=== PATIENT | male | born 1930 | race Caucasian/White ===

== ENCOUNTER 2018-01-09 20:35 | Inpatient (IN) | payer MEDICARE, OTHER ==
[~2018-01-09] VITALS: Ht 170.2 cm; Wt 83.6 kg
[2018-01-09] MEDS ORDERED: PANTOPRAZOLE 40 MG 10ML VIAL IV STA (21:15)
[2018-01-09] MEDS ORDERED: SODIUM CHLORIDE 0.9% 1000ML 1,000 ML IV STA ×2 (21:15→23:10)
[2018-01-09 21:24] LABS: BASOPHILS % 0.5 % (0.0-1.0); EOSINOPHILS # (AUTO) 0.3 (0.0-0.4); EOSINOPHILS % 4.3 % (0.0-6.0); HEMATOCRIT 35.1 % (38.2-49.6); HEMOGLOBIN 11.1 g/dL (14.0-18.0); LYMPHOCYTES # (AUTO) 0.6 (1.0-3.2); LYMPHOCYTES % 9.8 % (18.0-39.1); MEAN CORPUSCULAR HEMOGLOBIN 26.1 pg (28-32); MEAN CORPUSCULAR HGB CONC 31.6 g/dL (31-35); MEAN CORPUSCULAR VOLUME 82.4 fL (81-99); MONOCYTES # (AUTO) 0.6 (0.2-0.8); MONOCYTES % 9.4 % (4.4-11.3); NEUTROPHILS # (AUTO) 4.9 (2.1-6.9); NEUTROPHILS % 75.5 % (38.7-80.0); PLATELET COUNT 139 x10e3/uL (140-360); RED BLOOD COUNT 4.26 x10e6/uL (4.3-5.7); RED CELL DISTRIBUTION WIDTH 16.5 % (11.7-14.4)
[2018-01-09 21:28] LABS: INR 2.55; PROTHROMBIN TIME 29.3 seconds (11.9-14.5)
[2018-01-09 21:29] LABS: PARTIAL THROMBOPLASTIN TIME 46.6 seconds (23.8-35.5)
[2018-01-09 21:38] LABS: ALBUMIN 3.6 g/dL (3.5-5.0); ALBUMIN/GLOBULIN RATIO 0.9 (0.8-2.0); ANION GAP 14.7 mmol/L (8-16); CALCIUM 9.5 mg/dL (8.4-10.2); CREATININE, SERUM 1.41 mg/dL (0.72-1.25); MAGNESIUM 1.9 MG/DL (1.3-2.1); POTASSIUM 4.7 mmol/L (3.5-5.1)
[2018-01-09 21:44] LABS: CREATINE KINASE MB 1.2 ng/mL (0-5.0)
--- NOTE | 2018-01-09 23:28 | Diagnostic Imaging Report ---
EXAMINATION: CHEST SINGLE (PORTABLE) INDICATION: Pacemaker, valve replacement, A. fib on Coumadin COMPARISON: None FINDINGS: TUBES and LINES: The pacemaker is intact. LUNGS: Lungs are not well inflated. Left lower lobe airspace opacity in the retrocardiac space with air bronchogram . PLEURA: Trace of left pleural effusion. HEART AND MEDIASTINUM: The cardiomediastinal silhouette is unremarkable. BONES AND SOFT TISSUES: No acute osseous lesion. Soft tissues are unremarkable. UPPER ABDOMEN: No free air under the diaphragm. IMPRESSION: Confluent opacity in the left lower lobe, retrocardiac space may represent atelectasis or pneumonia. Small left pleural effusion. Signed by: Dr. Kristopher Reynoso M.D. on 01/09/2018 11:25 PM
[2018-01-10] VITALS (67 sets, daily range): BP systolic 78–155; BP diastolic 49–87
[2018-01-10] MEDS ORDERED: LISINOPRIL5 MG PO (00:14)
[2018-01-10] MEDS ORDERED: ASPIR 8181 MG PO (00:14)
[2018-01-10] MEDS ORDERED: LIPITOR20 MG PO (00:14)
[2018-01-10] MEDS ORDERED: WARFARIN SODIUM2 MG PO (00:14)
[2018-01-10] MEDS ORDERED: ISOSORBIDE MONO20 MG PO (00:14)
[2018-01-10] MEDS ORDERED: CETIRIZINE HCL10 MG PO (00:14)
[2018-01-10] MEDS ORDERED: BETIMOL5 M1 OS (00:14)
[2018-01-10] MEDS: SODIUM CHLORIDE 0.9% 1000ML 1,000 ML IV SCH ×3 (00:57→23:00)
[2018-01-10 01:41] LABS: BILIRUBIN,URINE NEGATIVE (NEGATIVE); CLARITY,URINE CLEAR (CLEAR); COLOR,URINE YELLOW (YELLOW); KETONES,URINE NEGATIVE (NEGATIVE); LEUKOCYTE ESTERASE ,URINE NEGATIVE (NEGATIVE); NITRITE,URINE NEGATIVE (NEGATIVE); PROTEIN,URINE DIPSTICK NEGATIVE (NEGATIVE); URINE UROBILINOGEN 0.2 mg/dL (0.2 - 1)
[2018-01-10 01:49] LABS: BACTERIA,URINE RARE /HPF; EPITHELIAL CELLS,URINE RARE /LPF; RBC,URINE >50 /HPF (0-5); WBC,URINE (MAN) 0-5 /HPF (0-5)
[2018-01-10 07:58] LABS: BASOPHILS % 0.1 % (0.0-1.0); EOSINOPHILS # (AUTO) 0.3 (0.0-0.4); EOSINOPHILS % 3.8 % (0.0-6.0); HEMATOCRIT 23.6 % (38.2-49.6); HEMOGLOBIN 7.4 g/dL (14.0-18.0); LYMPHOCYTES # (AUTO) 0.7 (1.0-3.2); MEAN CORPUSCULAR HEMOGLOBIN 26.1 pg (28-32); MEAN CORPUSCULAR HGB CONC 31.4 g/dL (31-35); MEAN CORPUSCULAR VOLUME 83.1 fL (81-99); MONOCYTES # (AUTO) 0.6 (0.2-0.8); MONOCYTES % 9.3 % (4.4-11.3); NEUTROPHILS # (AUTO) 5.2 (2.1-6.9); NEUTROPHILS % 76.5 % (38.7-80.0); PLATELET COUNT 124 x10e3/uL (140-360); RED BLOOD COUNT 2.84 x10e6/uL (4.3-5.7); RED CELL DISTRIBUTION WIDTH 16.6 % (11.7-14.4)
[2018-01-10 08:14] LABS: INR 2.63
[2018-01-10 08:27] LABS: ALANINE AMINOTRANSFERASE 10 IU/L (0-55); ALBUMIN 2.7 g/dL (3.5-5.0); ALBUMIN/GLOBULIN RATIO 1.1 (0.8-2.0); ALKALINE PHOSPHATASE 64 IU/L (40-150); ANION GAP 11.8 mmol/L (8-16); BLOOD UREA NITROGEN 28 mg/dL (7-26); BUN/CREATININE RATIO 28 (6-25); CALCIUM 7.8 mg/dL (8.4-10.2); CARBON DIOXIDE 21 mmol/L (22-29); CHLORIDE 112 mmol/L (98-107); CREATININE, SERUM 1.01 mg/dL (0.72-1.25); EST GLOMERULAR FILTRATION RATE > 60 ML/MIN (60-); GLUCOSE 106 mg/dL (74-118); POTASSIUM 4.8 mmol/L (3.5-5.1); SODIUM 140 mmol/L (136-145)
[2018-01-10] MEDS ORDERED: SODIUM CHLORIDE 0.9% 250ML 250 ML IV ONE ×2 (08:45→11:45)
[2018-01-10] MEDS: PANTOPRAZOLE 40 MG 10ML VIAL IV SCH ×2 (09:00→23:00)
--- NOTE | 2018-01-10 09:38 | Consultation ---
DATE OF CONSULTATION: January 10, 2018 GASTROENTEROLOGY CONSULTATION REFERRING PHYSICIAN: Hermelindo Michelle MD REASON FOR CONSULTATION: Hemodynamically unstable lower GI bleeding. HISTORY OF PRESENT ILLNESS: This is an 87-year-old, very pleasant white male with past medical history of coronary artery disease status post CABG, atrial fibrillation on warfarin, aortic stenosis status post bioprosthetic aortic valve replacement, who got up last night with urge to have a bowel movement. When he went to the bathroom, he started passing blood, barely had any stool in it. He reported no abdominal pain. He felt weak and dizzy. He came to the emergency room where his vital signs were noted blood pressure 107/68 that dropped down further to 98/60. He is on warfarin for atrial fibrillation. INR was noted at 2.63. He was subsequently transferred to the medical floor with working diagnosis of lower GI bleeding. He is getting IV fluids. Two units of FFP have been ordered. Hemoglobin was noted to drop down from 14.2, which was his baseline. It dropped down from 11.1 to 7.4. Patient is quite lethargic and drowsy. REVIEW OF SYSTEMS: Twelve point systems reviewed. Symptomatology is limited as per HPI. PAST MEDICAL HISTORY: Hypertension, hyperlipidemia, atrial fibrillation, coronary artery disease, aortic stenosis status post bioprosthetic aortic valve replacement. PAST SURGICAL HISTORY: CABG, aortic valve replacement. FAMILY HISTORY: Noncontributory, given his advanced age. SOCIAL HISTORY: , lives with his . No smoking, alcohol or any illicit drug use. ALLERGIES: NO KNOWN DRUG ALLERGIES. HOME MEDICATIONS: Aspirin, atorvastatin, cetirizine, isosorbide mononitrate, lisinopril, Timolol eye drops, warfarin 4 mg daily. PHYSICAL EXAMINATION VITALS: Temperature 96.7, pulse 62, respirations 17, blood pressure 118/59. Oxygen saturation is 96% on room air. GENERAL: Lethargic. Pale. Drowsy. Oral mucosa is moist. Anicteric sclerae. CVS: S1 and S2 irregularly irregular. Pacemaker in the left anterior chest wall. LUNGS: Bilaterally grossly clear. ABDOMEN: Soft, nondistended, nontender. No palpable mass or hernia. Positive bowel sounds. EXTREMITIES: Cold and clammy. No peripheral edema. LABS: WBC 6.80. Hemoglobin 7.4, dropped down from 11.1. Hematocrit 23.6. Platelet count 124. Sodium 140, potassium 4.8, chloride 112, bicarb 21, BUN 28, creatinine 1.01. Glucose 106. Liver enzymes are normal. Urinalysis showed RBCs more than 50 and WBC 0.5. Chest x-ray: Confluent opacity in the left lower lobe retrocardiac space may represent atelectasis or pneumonia. Small left pleural effusion. IMPRESSION 1. Hemodynamically unstable lower gastrointestinal bleeding, likely diverticular. 2. Coagulopathy from warfarin. International normalization ratio, although, is within therapeutic range. PLAN: Transfer the patient to the ICU. Standard medical management for GI bleeding that should include securing 2 large IV access, IV fluids, monitor hemoglobin, transfuse as necessary to keep the hemoglobin above 7. Oxygen. Reverse coagulopathy to a normalized INR. Therefore, the patient should be given fresh frozen plasma. Stat CT angiogram to check for extravasation of any contrast. If there is any active GI bleeding, then patient should undergo urgent embolization. If no active bleeding, then we will prep him with GoLYTELY and colonoscopy accordingly. I thank Dr. Michelle for allowing me to participate in the care of this patient. Job#: [id number] BRINA
--- NOTE | 2018-01-10 11:58 | Diagnostic Imaging Report ---
PROCEDURE:CTA ABD/PELVIS WOW COMPARISON:None. INDICATIONS:GI BLEED TECHNIQUE: Multi-detector CT technology with Dose Reduction was employed. Images were obtained after the administration of Isovue 370 contrast intravenously. For optimization of anatomic evaluation, multiplanar and volume rendering reconstructions were performed. Advanced 3-D off-line postprocessing were performed on a dedicated stand-alone workstation under the direct supervision of the interpreting physician. DLP: 1740 mGy-cm FINDINGS: Vascular: No evidence of aortic dissection or aneurysm. The suprarenal abdominal aorta measures up to 2.6 cm. The infrarenal abdominal aorta measures up to 2 cm. No evidence of active arterial extravasation or pseudoaneurysm in the mesenteric vessels. Moderate atherosclerotic changes in the abdominal aorta and branch vessels. The bilateral common, external and internal iliac arteries are patent with moderate atherosclerotic disease. No significant areas of narrowing. Separate origin of the left gastric artery from the aorta. Abdominal and Pelvic soft-tissues and organs: Lung bases: Status post aortic valve replacement. Extensive coronary atherosclerotic changes. Partially seen pacemaker lead terminating in the right ventricle. Left atrial enlargement. Patchy dependent atelectasis. Small left pleural effusion. Volume loss in the left lower lobe with bronchiectasis, bronchial wall thickening. Left basilar pleural calcifications. There is a 4 mm solid pulmonary nodule in the left lower lobe on series 4, image 11. Liver: Punctate calcified granulomas in the liver. No other focal hepatic lesions. Calcified gallstones. No biliary ductal dilatation. Reflux of contrast into the IVC, suggestive of right heart dysfunction. Spleen: Splenic granulomas. No splenomegaly. Pancreas: Unremarkable. Adrenal Glands: Unremarkable. Kidneys: Subcentimeter bilateral renal hypo densities are too small to characterize, but likely represent cysts. No evidence of hydronephrosis, stones, or solid mass lesions. No evidence of urothelial images on delayed images. GI: Large hiatal hernia. Peritoneum/Retroperitoneum: No free air or free fluid. Pelvis: Enlarged prostate. Bladder appears unremarkable. Bones and Soft tissues: Diffuse osteopenia. Grade 2 anterolisthesis of L5 on S1 with bone on bone contact and possible partial fusion at this level. There are wedge compression deformities at L1 and L3 with loss of 50-75 percent of vertebral body height. Mild narrowing of the spinal canal at L1. Bilateral fat containing inguinal hernias. CONCLUSION: No evidence of acute vascular findings in the abdomen or pelvis. No etiology identified to account for the patient's reported GI bleed. Age indeterminate wedge compression fractures at L1 and L3 with loss of 50-75 percent of vertebra body height. Sequela of prior granulomatous disease in the left lung base, liver, and spleen. Dictated by: SRINIVAS BLAND M.D. on 01/10/2018 at 12:06 Electronically approved by: SRINIVAS BLAND M.D. on 01/10/2018 at 12:06
[2018-01-10] MEDS: NITROGLYCERIN 0.1MG/HR PATCH TOP SCH (12:00)
[2018-01-10 12:13] LABS: BASOPHILS % 0.3 % (0.0-1.0); EOSINOPHILS # (AUTO) 0.2 (0.0-0.4); EOSINOPHILS % 2.5 % (0.0-6.0); HEMATOCRIT 21.6 % (38.2-49.6); LYMPHOCYTES # (AUTO) 0.7 (1.0-3.2); LYMPHOCYTES % 8.6 % (18.0-39.1); MEAN CORPUSCULAR HEMOGLOBIN 25.9 pg (28-32); MEAN CORPUSCULAR VOLUME 83.4 fL (81-99); MONOCYTES # (AUTO) 0.7 (0.2-0.8); MONOCYTES % 8.3 % (4.4-11.3); NEUTROPHILS # (AUTO) 6.3 (2.1-6.9); NEUTROPHILS % 79.8 % (38.7-80.0); PLATELET COUNT 114 x10e3/uL (140-360); RED BLOOD COUNT 2.59 x10e6/uL (4.3-5.7); RED CELL DISTRIBUTION WIDTH 16.5 % (11.7-14.4)
[2018-01-10 12:21] LABS: HEMOGLOBIN 6.7 g/dL (14.0-18.0)
--- NOTE | 2018-01-10 13:07 | History and Physical ---
CLINICAL HISTORY: This is an 87-year-old white man, a patient Dr. Asha Ortiz, who follows at [facility] and with his business systems consultant at [facility], Dr. Guaman, who presented to the emergency room with rectal bleeding. This patient has a complicated cardiovascular history. He has history of chronic atrial fibrillation, previously suffered 2 strokes without significant sequela. He was taking Coumadin. Last year, he underwent bypass surgery and aortic valve replacement, after which he was continued on Coumadin without any significant bleeding. He is status post pacemaker implantation. Reportedly after his bypass surgery, he developed endocarditis or some other chronic infection that required 8 weeks of intravenous antibiotic on outpatient basis with Dr. Suazo. Recently, he has mild memory issues and has started to walk with a walker for fear of falling. He was at a restaurant when he noticed bright red blood per rectum around dinner time, came to the emergency room and was hospitalized. PAST MEDICAL HISTORY: Remarkable for prostate cancer and bleeding. He was seen recently at the [facility] by urology and was told to not worry about the bleeding. FAMILY HISTORY: Noncontributory. PERSONAL AND SOCIAL HISTORY: Denies smoking or drinking. ALLERGIES: NONE KNOWN. MEDICATIONS AT HOME: Aspirin, atorvastatin, cetirizine, isosorbide mononitrate, lisinopril, timolol eye drops, and Coumadin 4 mg per day. REVIEW OF SYSTEMS: Noncontributory. PHYSICAL EXAMINATION VITAL SIGNS: Stable. CARDIAC: Jugular veins were not distended. S1, S2 were regular with ectopy and distant. Prosthetic aortic valve sound is poorly heard. LUNGS: Clear. ABDOMEN: Soft. Bowel sounds are present. EXTREMITIES: Showed no cyanosis, clubbing, or edema. LABORATORY STUDIES: Electrocardiogram showed pacemaker rhythm with occasional ectopy, possible underlying atrial fibrillation. The white count is 6500, hemoglobin 11.1, platelet count is 139,000. Chemistries are BUN 28, creatinine 1.4, bilirubin 1.5. Urine showed 2+ blood, greater than 50 rbc's per high power field. INR is 2.5. IMPRESSION 1. Lower gastrointestinal bleeding with blood per rectum. 2. Recent genitourinary bleeding with urinalysis showing 2+ blood and greater than 50 red blood cells per high powered field, followed by urology at the [facility] and was told not to worry. 3. Atrial fibrillation, apparently longstanding and chronic. 4. History of cerebrovascular accident. 5. Status post aortic valve replacement. 6. Coronary artery disease, status post coronary artery bypass surgery. 7. Pacemaker. 8. History of prostate cancer, treated with radiation. 9. Possible mild dementia. RECOMMENDATIONS: Agree with current plans to reverse anticoagulation. If he does resume anticoagulation, he may need to take much lower dose, possibly keeping INR at 2.0 rather than 2.5 and above. Job#: [id number] LPA cc:DR. ASHA ORTIZ
--- OUTSIDE RECORDS SUMMARY | 2018-01-10 14:27 | XMS REPORT | CCD ---
Author Author Auto Generated Organization [facility] Address Unknown Phone Unavailable Care Team Providers Care Rn Bsn Name Role Phone Dread Osorio RP Results CHEMISTRY Most recent to oldest [Reference Range]: 1 Digoxin Lvl [0.8-2.0 ng/mL] 0.6 ng/mL *LOW* (02/12/2011 11:23:00) HEMATOLOGY Most recent to oldest [Reference Range]: 1 PT [12.0-14.7 seconds] 21.5 seconds *HI* (02/12/2011 11:23:00) INR [0.85-1.17] 1.89 1 *HI* (02/12/2011 11:23:00) 1Interpretive Data: RECOMMENDED RANGES FOR PROTIME INR: 2.0-3.0 for most medical and surgical thromboembolic states. 2.5-3.5 for artificial heart valves and recurrent embolism.INR SHOULD BE USED ONLY FOR PATIENTS ON STABLE ANTICOAGULANT THERAPY.
--- OUTSIDE RECORDS SUMMARY | 2018-01-10 14:27 | XMS REPORT | CCD ---
Author Author Auto Generated Organization [facility] Address Unknown Phone Unavailable Care Team Providers Care Quality Worker Name Role Phone JoDread Gopi CP Results HEMATOLOGY Most recent to oldest [Reference Range]: 1 PT [12.0-14.7 seconds] 30.9 seconds *HI* (11/08/2012 16:37:00) INR [0.85-1.17] 2.99 1 *HI* (11/08/2012 16:37:00) 1Interpretive Data: RECOMMENDED RANGES FOR PROTIME INR: 2.0-3.0 for most medical and surgical thromboembolic states. 2.5-3.5 for artificial heart valves and recurrent embolism. INR SHOULD BE USED ONLY FOR PATIENTS ON STABLE ANTICOAGULANT THERAPY.
--- OUTSIDE RECORDS SUMMARY | 2018-01-10 14:27 | XMS REPORT | Continuity of Care Document ---
Author Author [facility] Interface Address Unknown Phone Unavailable Problems Problem Status Onset Date Classification Date Reported Comments Source R06.02 Active 07/28/2016 [facility] SHORTNESS OF BREATH Active 07/28/2016 [facility] Z79.01 Active 2015 [facility] I48.91 Active 06/10/2015 [facility] LAB Active 05/14/2014 [facility] V58.61 Active 01/21/2014 [facility] Final: Unspecified atrial fibrillation 07/12/2015 [facility] UNK Active [facility] LABS Active [facility] [id number] Active [facility] LONG-TERM USE ANTICOAGUL Active [facility] LABS/RECURRING Active [facility] 427.31, V58.61 Active [facility] ATRIAL FIBRILLATION Active [facility] BENIGN HYPERTENSION Active [facility] HYPERLIPIDEMIA NEC/NOS Active [facility] AORTIC VALVE DISORDER Active [facility] LABS RECURRING Active [facility] 272.4 Active [facility] PT INR Active [facility] RECURRING Active [facility] RUG SETTER VELVET (CURRENT) USE OF ANTICOAGULANT Active [facility] SHORTNESS OF BREATH Active [facility] Medications Medication Details Route Status Patient Instructions Ordering Provider Order Date Source Allergies, Adverse Reactions, Alerts Substance Category Reaction Severity Reaction type Status Date Reported Comments Source Immunizations Immunization Date Given Site Status Last Updated Comments Source Results Order Name Results Value Reference Range Date Interpretation Comments Source HEMATOLOGY PT 23.2 s 12.0 - 14.7 2015 [facility] HEMATOLOGY INR 2.02 0.85 - 1.17 2015 [facility] HEMATOLOGY INR 2.30 0.85 - 1.17 06/10/2015 [facility] HEMATOLOGY PT 25.6 s 12.0 - 14.7 06/10/2015 [facility] HEMATOLOGY PT 20.7 s 12.0 - 14.7 04/04/2015 [facility] HEMATOLOGY INR 1.74 0.85 - 1.17 04/04/2015 [facility] HEMATOLOGY INR 3.31 0.85 - 1.17 01/20/2015 [facility] HEMATOLOGY PT 33.9 s 12.0 - 14.7 01/20/2015 [facility] HEMATOLOGY INR 2.89 0.85 - 1.17 12/19/2014 [facility] HEMATOLOGY PT 30.5 s 12.0 - 14.7 12/19/2014 [facility] HEMATOLOGY PT 33.6 s 12.0 - 14.7 10/16/2014 [facility] HEMATOLOGY INR 3.16 0.85 - 1.17 10/16/2014 [facility] HEMATOLOGY PT 29.3 s 12.0 - 14.7 08/29/2014 [facility] HEMATOLOGY INR 2.67 0.85 - 1.17 08/29/2014 1Interpretive Data: RECOMMENDED RANGES FOR PROTIME INR: 2.0-3.0 for most medical and surgical thromboembolic states. 2.5-3.5 for artificial heart valves and recurrent embolism. INR SHOULD BE USED ONLY FOR PATIENTS ON STABLE ANTICOAGULANT THERAPY. [facility] HEMATOLOGY INR 2.26 0.85 - 1.17 07/12/2014 1Interpretive Data: RECOMMENDED RANGES FOR PROTIME INR: 2.0-3.0 for most medical and surgical thromboembolic states. 2.5-3.5 for artificial heart valves and recurrent embolism. INR SHOULD BE USED ONLY FOR PATIENTS ON STABLE ANTICOAGULANT THERAPY. [facility] HEMATOLOGY PT 25.6 s 12.0 - 14.7 07/12/2014 [facility] HEMATOLOGY PT 26.8 s 12.0 - 14.7 05/14/2014 [facility] INR 2.39 0.85 - 1.17 05/14/2014 1Interpretive Data: RECOMMENDED RANGES FOR PROTIME INR: 2.0-3.0 for most medical and surgical thromboembolic states. 2.5-3.5 for artificial heart valves and recurrent embolism. INR SHOULD BE USED ONLY FOR PATIENTS ON STABLE ANTICOAGULANT THERAPY. [facility] HEMATOLOGY PT 24.6 s 12.0 - 14.7 03/18/2014 [facility] INR 2.15 0.85 - 1.17 03/18/2014 1Interpretive Data: RECOMMENDED RANGES FOR PROTIME INR: 2.0-3.0 for most medical and surgical thromboembolic states. 2.5-3.5 for artificial heart valves and recurrent embolism. INR SHOULD BE USED ONLY FOR PATIENTS ON STABLE ANTICOAGULANT THERAPY. [facility] HEMATOLOGY INR 3.09 0.85 - 1.17 02/14/2014 1Interpretive Data: RECOMMENDED RANGES FOR PROTIME INR: 2.0-3.0 for most medical and surgical thromboembolic states. 2.5-3.5 for artificial heart valves and recurrent embolism. INR SHOULD BE USED ONLY FOR PATIENTS ON STABLE ANTICOAGULANT THERAPY. [facility] HEMATOLOGY PT 33.0 s 12.0 - 14.7 02/14/2014 [facility] INR 2.54 0.85 - 1.17 01/21/2014 2Interpretive Data: RECOMMENDED RANGES FOR PROTIME INR: 2.0-3.0 for most medical and surgical thromboembolic states. 2.5-3.5 for artificial heart valves and recurrent embolism. INR SHOULD BE USED ONLY FOR PATIENTS ON STABLE ANTICOAGULANT THERAPY. [facility] HEMATOLOGY PT 28.2 s 12.0 - 14.7 01/21/2014 [facility] INR 2.81 0.85 - 1.17 11/19/2013 1Interpretive Data: RECOMMENDED RANGES FOR PROTIME INR: 2.0-3.0 for most medical and surgical thromboembolic states. 2.5-3.5 for artificial heart valves and recurrent embolism. INR SHOULD BE USED ONLY FOR PATIENTS ON STABLE ANTICOAGULANT THERAPY. [facility] PT 29.0 s 12.0 - 14.7 11/19/2013 [facility] PT 24.4 s 12.0 - 14.7 10/19/2013 [facility] INR 2.24 0.85 - 1.17 10/19/2013 1Interpretive Data: RECOMMENDED RANGES FOR PROTIME INR: 2.0-3.0 for most medical and surgical thromboembolic states. 2.5-3.5 for artificial heart valves and recurrent embolism. INR SHOULD BE USED ONLY FOR PATIENTS ON STABLE ANTICOAGULANT THERAPY. [facility] INR 2.19 0.85 - 1.17 09/24/2013 2Interpretive Data: RECOMMENDED RANGES FOR PROTIME INR: 2.0-3.0 for most medical and surgical thromboembolic states. 2.5-3.5 for artificial heart valves and recurrent embolism. INR SHOULD BE USED ONLY FOR PATIENTS ON STABLE ANTICOAGULANT THERAPY. [facility] HEMATOLOGY PT 23.9 s 12.0 - 14.7 09/24/2013 [facility] INR 2.40 0.85 - 1.17 08/24/2013 1Interpretive Data: RECOMMENDED RANGES FOR PROTIME INR: 2.0-3.0 for most medical and surgical thromboembolic states. 2.5-3.5 for artificial heart valves and recurrent embolism. INR SHOULD BE USED ONLY FOR PATIENTS ON STABLE ANTICOAGULANT THERAPY. [facility] HEMATOLOGY PT 25.7 s 12.0 - 14.7 08/24/2013 [facility] HEMATOLOGY PT 21.5 s 12.0 - 14.7 08/06/2013 [facility] INR 1.90 0.85 - 1.17 08/06/2013 1Interpretive Data: RECOMMENDED RANGES FOR PROTIME INR: 2.0-3.0 for most medical and surgical thromboembolic states. 2.5-3.5 for artificial heart valves and recurrent embolism. INR SHOULD BE USED ONLY FOR PATIENTS ON STABLE ANTICOAGULANT THERAPY. [facility] HEMATOLOGY PT 25.0 s 12.0 - 14.7 07/20/2013 [facility] INR 2.32 0.85 - 1.17 07/20/2013 2Interpretive Data: RECOMMENDED RANGES FOR PROTIME INR: 2.0-3.0 for most medical and surgical thromboembolic states. 2.5-3.5 for artificial heart valves and recurrent embolism. INR SHOULD BE USED ONLY FOR PATIENTS ON STABLE ANTICOAGULANT THERAPY. [facility] INR 2.21 0.85 - 1.17 07/03/2013 3Interpretive Data: RECOMMENDED RANGES FOR PROTIME INR: 2.0-3.0 for most medical and surgical thromboembolic states. 2.5-3.5 for artificial heart valves and recurrent embolism. INR SHOULD BE USED ONLY FOR PATIENTS ON STABLE ANTICOAGULANT THERAPY. [facility] PT 24.1 s 12.0 - 14.7 07/03/2013 1Result Comment: Collection date/time has been modified to: 13:30:00. Previous collection date/time: 10:14:00. [facility] HEMATOLOGY PT 31.4 s 12.0 - 14.7 06/25/2013 [facility] INR 3.12 0.85 - 1.17 06/25/2013 1Interpretive Data: RECOMMENDED RANGES FOR PROTIME INR: 2.0-3.0 for most medical and surgical thromboembolic states. 2.5-3.5 for artificial heart valves and recurrent embolism. INR SHOULD BE USED ONLY FOR PATIENTS ON STABLE ANTICOAGULANT THERAPY. [facility] INR 2.94 0.85 - 1.17 05/07/2013 1Interpretive Data: RECOMMENDED RANGES FOR PROTIME INR: 2.0-3.0 for most medical and surgical thromboembolic states. 2.5-3.5 for artificial heart valves and recurrent embolism. INR SHOULD BE USED ONLY FOR PATIENTS ON STABLE ANTICOAGULANT THERAPY. [facility] PROTIME 30.0 s 12.0 - 14.7 05/07/2013 [facility] PROTIME 34.2 s 12.0 - 14.7 04/23/2013 [facility] INR 3.48 0.85 - 1.17 04/23/2013 2Interpretive Data: RECOMMENDED RANGES FOR PROTIME INR: 2.0-3.0 for most medical and surgical thromboembolic states. 2.5-3.5 for artificial heart valves and recurrent embolism. INR SHOULD BE USED ONLY FOR PATIENTS ON STABLE ANTICOAGULANT THERAPY. [facility] PROTIME 24.9 s 12.0 - 14.7 01/25/2013 [facility] INR 2.30 0.85 - 1.17 01/25/2013 [facility] 1Interpretive Data: RECOMMENDED RANGES FOR PROTIME INR: 2.0-3.0 for most medical and surgical thromboembolic states. 2.5-3.5 for artificial heart valves and recurrent embolism. INR SHOULD BE USED ONLY FOR PATIENTS ON STABLE ANTICOAGULANT THERAPY. [facility] INR 2.99 0.85 - 1.17 11/08/2012 [facility] 1Interpretive Data: RECOMMENDED RANGES FOR PROTIME INR: 2.0-3.0 for most medical and surgical thromboembolic states. 2.5-3.5 for artificial heart valves and recurrent embolism. INR SHOULD BE USED ONLY FOR PATIENTS ON STABLE ANTICOAGULANT THERAPY. [facility] PT 30.9 s 12.0 - 14.7 11/08/2012 [facility] PT 27.5 s 12.0 - 14.7 09/01/2012 [facility] INR 2.56 0.85 - 1.17 09/01/2012 [facility] 1Interpretive Data: RECOMMENDED RANGES FOR PROTIME INR: 2.0-3.0 for most medical and surgical thromboembolic states. 2.5-3.5 for artificial heart valves and recurrent embolism. INR SHOULD BE USED ONLY FOR PATIENTS ON STABLE ANTICOAGULANT THERAPY. [facility] INR 2.94 0.85 - 1.17 07/03/2012 [facility] 1Interpretive Data: RECOMMENDED RANGES FOR PROTIME INR: 2.0-3.0 for most medical and surgical thromboembolic states. 2.5-3.5 for artificial heart valves and recurrent embolism. INR SHOULD BE USED ONLY FOR PATIENTS ON STABLE ANTICOAGULANT THERAPY. [facility] HEMATOLOGY PT 30.5 s 12.0 - 14.7 07/03/2012 HI [facility] CHEMISTRY Total CK 88 unit/L 12 - 191 04/18/2012 Normal [facility] CHEMISTRY CHD Risk 3.45 4.00 - 7.30 04/18/2012 LOW [facility] CHEMISTRY LDL 66 mg/dL 0 - 129 04/18/2012 Normal [facility] CHEMISTRY Trig 136 mg/dL 0 - 200 04/18/2012 Normal [facility] CHEMISTRY HDL 38 mg/dL >=35 04/18/2012 Normal [facility] CHEMISTRY Chol 131 mg/dL 120 - 200 04/18/2012 Normal [facility] CHEMISTRY Digoxin Lvl 0.6 ng/mL 0.8 - 2.0 04/18/2012 LOW [facility] CHEMISTRY eGFR 56 mL/min/1.73m2 04/18/2012 NA 1Result Comment: The eGFR is calculated using the CKD-EPI formula. In most young, healthy individuals the eGFR will be >90 mL/min/1.73m2. The eGFR declines with age. An eGFR of 60-89 may be normal in some populations, particularly the elderly, for whom the CKD-EPI formula has not been extensively validated. Use of the eGFR is not recommended in the following populations: Individuals with unstable creatinine concentrations, including patients and those with serious co-morbid conditions. Patients with extremes in muscle mass or diet. The data above are obtained from the National Kidney Disease Education Program (NKDEP) which additionally recommends that when the eGFR is used in patients with extremes of body mass index for purposes of drug dosing, the eGFR should be multiplied by the estimated BMI. [facility] CHEMISTRY Albumin Lvl 3.9 g/dL 3.5 - 5.0 04/18/2012 Normal [facility] CHEMISTRY CO2 26 meq/L 24 - 32 04/18/2012 Normal [facility] CHEMISTRY Chloride Lvl 106 meq/L 95 - 109 04/18/2012 Normal [facility] CHEMISTRY Calcium Lvl 8.6 mg/dL 8.5 - 10.5 04/18/2012 Normal [facility] CHEMISTRY Creatinine Lvl 1.2 mg/dL 0.5 - 1.4 04/18/2012 Normal [facility] CHEMISTRY Sodium Lvl 141 meq/L 135 - 145 04/18/2012 Normal [facility] CHEMISTRY Potassium Lvl 4.3 meq/L 3.5 - 5.1 04/18/2012 Normal [facility] CHEMISTRY Glucose Lvl 113 mg/dL 70 - 99 04/18/2012 [facility] 2Interpretive Data: Adult reference range values reflect the clinical guidelines of the [place] [employer]. [facility] CHEMISTRY BUN 25 mg/dL 7 - 22 04/18/2012 [facility] CHEMISTRY Bili Total 1.9 mg/dL 0.2 - 1.3 04/18/2012 HI [facility] CHEMISTRY AST 12 unit/L 0 - 37 04/18/2012 Normal [facility] CHEMISTRY Alk Phos 59 unit/L 39 - 136 04/18/2012 Normal [facility] CHEMISTRY ALT 22 unit/L 0 - 65 04/18/2012 Normal [facility] CHEMISTRY Total Protein 7.4 g/dL 6.4 - 8.4 04/18/2012 Normal [facility] CHEMISTRY B/C Ratio 21 6 - 25 04/18/2012 Normal [facility] CHEMISTRY AGAP 13.3 meq/L 10.0 - 20.0 04/18/2012 Normal [facility] CHEMISTRY Globulin 3.5 g/dL 2.0 - 4.0 04/18/2012 Normal [facility] CHEMISTRY A/G Ratio 1.1 0.7 - 1.6 04/18/2012 Normal [facility] HEMATOLOGY Basophils # 0.0 K/CMM 0.0 - 0.2 04/18/2012 Normal [facility] HEMATOLOGY Eosinophils # 0.2 K/CMM 0.0 - 0.5 04/18/2012 Normal [facility] HEMATOLOGY Monocytes # 0.5 K/CMM 0.0 - 0.8 04/18/2012 Normal [facility] HEMATOLOGY Lymphocytes 15.8 % 20.0 - 40.0 04/18/2012 LOW [facility] HEMATOLOGY Segs 72.5 % 45.0 - 75.0 04/18/2012 Normal [facility] HEMATOLOGY Monocytes 8.0 % 2.0 - 12.0 04/18/2012 Normal [facility] HEMATOLOGY Segs-Bands # 4.3 K/CMM 1.5 - 8.1 04/18/2012 Normal [facility] HEMATOLOGY Basophils 0.6 % 0.0 - 1.0 04/18/2012 Normal [facility] HEMATOLOGY Eosinophils 3.1 % 0.0 - 4.0 04/18/2012 Normal [facility] HEMATOLOGY Lymphocytes # 0.9 K/CMM 1.0 - 5.5 04/18/2012 LOW [facility] HEMATOLOGY MCH 31.7 pg 27.0 - 31.0 04/18/2012 HI [facility] HEMATOLOGY MPV 8.0 fL 7.4 - 10.4 04/18/2012 Normal [facility] Platelet 136 K/CMM 133 - 450 04/18/2012 Normal [facility] RDW 14.0 % 11.5 - 14.5 04/18/2012 Normal [facility] MCHC 33.3 g/dL 32.0 - 36.0 04/18/2012 Normal [facility] MCV 95.2 fL 80.0 - 94.0 04/18/2012 [facility] Hct 42.8 % 42.0 - 54.0 04/18/2012 Normal [facility] Hgb 14.3 g/dL 14.0 - 18.0 04/18/2012 Normal [facility] RBC 4.50 M/CMM 4.70 - 6.10 04/18/2012 LOW [facility] WBC 6.0 K/CMM 3.7 - 10.4 04/18/2012 Normal [facility] PT 25.7 s 12.0 - 14.7 04/18/2012 [facility] INR 2.35 0.85 - 1.17 04/18/2012 [facility] 3Interpretive Data: RECOMMENDED RANGES FOR PROTIME INR: 2.0-3.0 for most medical and surgical thromboembolic states. 2.5-3.5 for artificial heart valves and recurrent embolism. INR SHOULD BE USED ONLY FOR PATIENTS ON STABLE ANTICOAGULANT THERAPY. [facility] INR 2.94 0.85 - 1.17 02/24/2012 [facility] 1Interpretive Data: RECOMMENDED RANGES FOR PROTIME INR: 2.0-3.0 for most medical and surgical thromboembolic states. 2.5-3.5 for artificial heart valves and recurrent embolism. INR SHOULD BE USED ONLY FOR PATIENTS ON STABLE ANTICOAGULANT THERAPY. [facility] PT 30.5 s 12.0 - 14.7 02/24/2012 [facility] PT 27.7 s 12.0 - 14.7 01/13/2012 [facility] INR 2.59 0.85 - 1.17 01/13/2012 [facility] 1Interpretive Data: RECOMMENDED RANGES FOR PROTIME INR: 2.0-3.0 for most medical and surgical thromboembolic states. 2.5-3.5 for artificial heart valves and recurrent embolism. INR SHOULD BE USED ONLY FOR PATIENTS ON STABLE ANTICOAGULANT THERAPY. [facility] INR 2.22 0.85 - 1.17 11/04/2011 [facility] 1Interpretive Data: RECOMMENDED RANGES FOR PROTIME INR: 2.0-3.0 for most medical and surgical thromboembolic states. 2.5-3.5 for artificial heart valves and recurrent embolism. INR SHOULD BE USED ONLY FOR PATIENTS ON STABLE ANTICOAGULANT THERAPY. [facility] HEMATOLOGY PT 24.6 s 12.0 - 14.7 11/04/2011 [facility] HEMATOLOGY PT 27.4 s 12.0 - 14.7 10/04/2011 [facility] HEMATOLOGY INR 2.58 0.85 - 1.17 10/04/2011 [facility] 1Interpretive Data: RECOMMENDED RANGES FOR PROTIME INR: 2.0-3.0 for most medical and surgical thromboembolic states. 2.5-3.5 for artificial heart valves and recurrent embolism. INR SHOULD BE USED ONLY FOR PATIENTS ON STABLE ANTICOAGULANT THERAPY. [facility] HEMATOLOGY PT 26.6 s 12.0 - 14.7 06/09/2011 [facility] INR 2.49 0.85 - 1.17 06/09/2011 [facility] 1Interpretive Data: RECOMMENDED RANGES FOR PROTIME INR: 2.0-3.0 for most medical and surgical thromboembolic states. 2.5-3.5 for artificial heart valves and recurrent embolism.INR SHOULD BE USED ONLY FOR PATIENTS ON STABLE ANTICOAGULANT THERAPY. [facility] HEMATOLOGY PT 25.9 s 12.0 - 14.7 04/22/2011 HI [facility] INR 2.40 0.85 - 1.17 04/22/2011 [facility] 1Interpretive Data: RECOMMENDED RANGES FOR PROTIME INR: 2.0-3.0 for most medical and surgical thromboembolic states. 2.5-3.5 for artificial heart valves and recurrent embolism.INR SHOULD BE USED ONLY FOR PATIENTS ON STABLE ANTICOAGULANT THERAPY. [facility] CHEMISTRY Digoxin Lvl 0.8 ng/mL 0.8 - 2.0 03/15/2011 Normal [facility] HEMATOLOGY INR 2.50 0.85 - 1.17 03/15/2011 [facility] 1Interpretive Data: RECOMMENDED RANGES FOR PROTIME INR: 2.0-3.0 for most medical and surgical thromboembolic states. 2.5-3.5 for artificial heart valves and recurrent embolism.INR SHOULD BE USED ONLY FOR PATIENTS ON STABLE ANTICOAGULANT THERAPY. [facility] HEMATOLOGY PT 26.7 s 12.0 - 14.7 03/15/2011 HI [facility] CHEMISTRY Digoxin Lvl 0.6 ng/mL 0.8 - 2.0 02/12/2011 LOW [facility] HEMATOLOGY PT 21.5 s 12.0 - 14.7 02/12/2011 HI [facility] HEMATOLOGY INR 1.89 0.85 - 1.17 02/12/2011 [facility] 1Interpretive Data: RECOMMENDED RANGES FOR PROTIME INR: 2.0-3.0 for most medical and surgical thromboembolic states. 2.5-3.5 for artificial heart valves and recurrent embolism.INR SHOULD BE USED ONLY FOR PATIENTS ON STABLE ANTICOAGULANT THERAPY. [facility] Vital Signs Vital Sign Value Date Comments Source Height 170.18 cm 08/02/2016 [facility] Weight 76.818 08/02/2016 [facility] BMI Calculated 26.52 08/02/2016 [facility] Encounters Location Location Details Encounter Type Encounter Number Reason For Visit Attending Provider ADM Date DC Date Status Source [facility] [place] [id number] V58.[address] [facility] 02[facility]12/2011 Active [facility] [place] [id number] LABS [facility] 03/15/2011 Active [facility] [place] [id number] V58.61 ASHA ORTIZ 04/22/2011 Active [facility] [place] [id number] LABS [facility] 06/09/2011 Active [facility] [place] [id number] UNK [facility] 10/04/2011 Active [facility] [place] [id number] LAB [facility] 11/04/2011 Active [facility] [place] [id number] V58.[address] [facility] 01/13/2012 02/11/2012 Active [facility] [place] [id number] LABS/RECURRING [facility] 02/24/2012 Active [facility] Outpatient [id number] 427.31, V58.[address] [facility] 04/18/2012 Active [facility] [place] [id number] LABS [facility] 07/03/2012 Active [facility] [place] [id number] V58.[address] [facility] 09/01/2012 Active [facility] [place] [id number] V58.[address] [facility] 11/08/2012 Active [facility] [place] [id number] V58.[address] [facility] 01/25/2013 Active [facility] [place] [id number] LABS RECURRING [facility] 04/23/2013 Active [facility] OP Recurring [id number] _MAPID:[id number] Jeovany Hust 04/23/2013 05/23/2013 [facility] OP Recurring [id number] Jeovany Tedt 06/25/2013 07/25/2013 [facility] Outpatient [id number] _MAPID:[id number] Jeovany Hust 06/25/2013 06/26/2013 [facility] OP Recurring [id number] Jeovany Hust 07/20/2013 08/19/2013 [facility] OP Recurring [id number] Jeovany Jeant 08/24/2013 09/23/2013 [facility] OP Recurring [id number] Jeovany Jeant 09/24/2013 10/24/2013 [facility] OP Recurring [id number] Jeovany Jeant 11/19/2013 12/19/2013 [facility] OP Recurring [id number] Jeovany Jeant 01/21/2014 02/20/2014 [facility] OP Recurring [id number] Jeovany Osorio 03/18/2014 04/17/2014 [facility] OP Recurring [id number] Jeovany Jeant 05/14/2014 06/13/2014 [facility] OP Recurring [id number] Jeovany Jeant 07/12/2014 08/11/2014 [facility] OP Recurring [id number] Jeovany Jeant 08/29/2014 09/28/2014 [facility] OP Recurring [id number] Jeovany Jeant 10/16/2014 11/15/2014 [facility] OP Recurring [id number] Jeovany Jeant 12/19/2014 12/25/2014 [facility] OP Recurring [id number] Jeovany Osorio 01/20/2015 02/19/2015 [facility] OP Recurring [id number] Jeovany Osorio 04/04/2015 05/04/2015 [facility] OP Recurring [id number] Jeovany Jeant 06/10/2015 07/10/2015 [facility] OP Recurring [id number] Jeovany Osorio 2015 10/18/2015 [facility] Outpatient [id number] Mayo Teran 08/02/2016 08/03/2016 [facility] Procedures Procedure Code Date Perfomer Comments Source
--- OUTSIDE RECORDS SUMMARY | 2018-01-10 14:27 | XMS REPORT | CCD ---
Author Author Auto Generated Organization [facility] Address Unknown Phone Unavailable Care Team Providers Care In Home Tutor Name Role Phone TedDread su Gopi RP Results HEMATOLOGY Most recent to oldest [Reference Range]: 1 PT [12.0-14.7 seconds] 27.5 seconds *HI* (09/01/2012 14:13:00) INR [0.85-1.17] 2.56 1 *HI* (09/01/2012 14:13:00) 1Interpretive Data: RECOMMENDED RANGES FOR PROTIME INR: 2.0-3.0 for most medical and surgical thromboembolic states. 2.5-3.5 for artificial heart valves and recurrent embolism. INR SHOULD BE USED ONLY FOR PATIENTS ON STABLE ANTICOAGULANT THERAPY.
--- OUTSIDE RECORDS SUMMARY | 2018-01-10 14:27 | XMS REPORT | Summary of Care ---
Author Organization Unknown Address Unknown Phone Unavailable Encounter JANIS Painting(EDSON) [id number] Date(s): 11/19/13 - 12/18/13 [facility] [address] [place] Discharge Disposition: Home Physician Attending: Dread Osorio MD Reason for Visit LABS Problem List No data available for this section Allergies, Adverse Reactions, Alerts No data available for this section Medications No data available for this section Results HEMATOLOGY Most recent to 1 oldest [Reference Range]: PT [12.0-14.7 29.0 seconds seconds] *HI* (11/19/13 1:44 PM) INR [0.85-1.17] 2.81 1 *HI* (11/19/13 1:44 PM) 1Interpretive Data: RECOMMENDED RANGES FOR PROTIME INR: 2.0-3.0 for most medical and surgical thromboembolic states. 2.5-3.5 for artificial heart valves and recurrent embolism. INR SHOULD BE USED ONLY FOR PATIENTS ON STABLE ANTICOAGULANT THERAPY. Medications Administered During Your Visit No data available for this section Immunizations No data available for this section
--- OUTSIDE RECORDS SUMMARY | 2018-01-10 14:27 | XMS REPORT | Summary of Care ---
Author Organization Unknown Address Unknown Phone Unavailable Encounter HQ Garima(EDSON) [id number] Date(s): 05/14/14 - 06/12/14 [facility] [address] [place] [address] [phone] Discharge Disposition: Home Physician Attending: Dread Osorio MD Vital Signs No data available for this section Problem List No data available for this section Allergies, Adverse Reactions, Alerts No data available for this section Medications No data available for this section Results HEMATOLOGY Most recent to 1 oldest [Reference Range]: PT [12.0-14.7 26.8 seconds seconds] *HI* (05/14/14 2:14 PM) INR [0.85-1.17] 2.39 1 *HI* (05/14/14 2:14 PM) 1Interpretive Data: RECOMMENDED RANGES FOR PROTIME INR: 2.0-3.0 for most medical and surgical thromboembolic states. 2.5-3.5 for artificial heart valves and recurrent embolism. INR SHOULD BE USED ONLY FOR PATIENTS ON STABLE ANTICOAGULANT THERAPY. Immunizations No data available for this section Procedures No data available for this section Social History No data available for this section Assessment and Plan No data available for this section
--- OUTSIDE RECORDS SUMMARY | 2018-01-10 14:27 | XMS REPORT | Summary of Care ---
Author Organization Unknown Address Unknown Phone Unavailable Encounter JANIS Painting(EDSON) [id number] Date(s): 01/21/14 - 02/19/14 [facility] [address] [address] [place] [address] Discharge Disposition: Home Physician Attending: Dread Osorio MD Reason for Visit V58.61 Problem List No data available for this section Allergies, Adverse Reactions, Alerts No data available for this section Medications No data available for this section Results HEMATOLOGY Most recent to 1 2 oldest [Reference Range]: PT [12.0-14.7 33.0 seconds 28.2 seconds seconds] *HI* *HI* (02/14/14 1:59 PM) (01/21/14 4:26 PM) INR [0.85-1.17] 3.09 1 2.54 2 *HI* *HI* (02/14/14 1:59 PM) (01/21/14 4:26 PM) 1Interpretive Data: RECOMMENDED RANGES FOR PROTIME INR: 2.0-3.0 for most medical and surgical thromboembolic states. 2.5-3.5 for artificial heart valves and recurrent embolism. INR SHOULD BE USED ONLY FOR PATIENTS ON STABLE ANTICOAGULANT THERAPY. 2Interpretive Data: RECOMMENDED RANGES FOR PROTIME INR: 2.0-3.0 for most medical and surgical thromboembolic states. 2.5-3.5 for artificial heart valves and recurrent embolism. INR SHOULD BE USED ONLY FOR PATIENTS ON STABLE ANTICOAGULANT THERAPY. Medications Administered During Your Visit No data available for this section Immunizations No data available for this section
--- OUTSIDE RECORDS SUMMARY | 2018-01-10 14:27 | XMS REPORT | CCD ---
Author Author Auto Generated Organization [facility] Address Unknown Phone Unavailable Care Team Providers Care Tinsel Machine Operator Name Role Phone JoDread Gopi CP Results HEMATOLOGY Most recent to oldest [Reference Range]: 1 PT [12.0-14.7 seconds] 27.4 seconds *HI* (10/04/2011 11:26:00) INR [0.85-1.17] 2.58 1 *HI* (10/04/2011 11:26:00) 1Interpretive Data: RECOMMENDED RANGES FOR PROTIME INR: 2.0-3.0 for most medical and surgical thromboembolic states. 2.5-3.5 for artificial heart valves and recurrent embolism. INR SHOULD BE USED ONLY FOR PATIENTS ON STABLE ANTICOAGULANT THERAPY.
--- OUTSIDE RECORDS SUMMARY | 2018-01-10 14:27 | XMS REPORT | CCD ---
Author Author Auto Generated Organization [facility] Address Unknown Phone Unavailable Care Team Providers Care Shuttle Spotter Name Role Phone Dread Osorio CP Results CHEMISTRY Most recent to oldest [Reference Range]: 1 Sodium Lvl [135-145 mEq/L] 141 mEq/L (04/18/2012 12:00:00) Potassium Lvl [3.5-5.1 mEq/L] 4.3 mEq/L (04/18/2012 12:00:00) Chloride Lvl [95-109 mEq/L] 106 mEq/L (04/18/2012 12:00:00) CO2 [24-32 mEq/L] 26 mEq/L (04/18/2012 12:00:00) AGAP [10.0-20.0 mEq/L] 13.3 mEq/L (04/18/2012 12:00:00) Creatinine Lvl [0.5-1.4 mg/dL] 1.2 mg/dL (04/18/2012 12:00:00) eGFR 56 mL/min/1.73m2 1 *NA* (04/18/2012 12:00:00) BUN [7-22 mg/dL] 25 mg/dL *HI* (04/18/2012 12:00:00) B/C Ratio [6-25] 21 (04/18/2012 12:00:00) Glucose Lvl [70-99 mg/dL] 113 mg/dL 2 *HI* (04/18/2012 12:00:00) Total Protein [6.4-8.4 g/dL] 7.4 g/dL (04/18/2012 12:00:00) Albumin Lvl [3.5-5.0 g/dL] 3.9 g/dL (04/18/2012 12:00:00) Globulin [2.0-4.0 g/dL] 3.5 g/dL (04/18/2012 12:00:00) A/G Ratio [0.7-1.6] 1.1 (04/18/2012 12:00:00) Calcium Lvl [8.5-10.5 mg/dL] 8.6 mg/dL (04/18/2012 12:00:00) ALT [0-65 unit/L] 22 unit/L (04/18/2012 12:00:00) AST [0-37 unit/L] 12 unit/L (04/18/2012 12:00:00) Alk Phos [39-136 unit/L] 59 unit/L (04/18/2012 12:00:00) Bili Total [0.2-1.3 mg/dL] 1.9 mg/dL *HI* (04/18/2012 12:00:00) Total CK [12-191 unit/L] 88 unit/L (04/18/2012 12:00:00) CHD Risk [4.00-7.30] 3.45 *LOW* (04/18/2012:00:00) Chol [120-200 mg/dL] 131 mg/dL (04/18/2012 12:00:00) Trig [0-200 mg/dL] 136 mg/dL (04/18/2012 12:00:00) HDL [>=35 mg/dL] 38 mg/dL (04/18/2012 12:00:00) LDL [0-129 mg/dL] 66 mg/dL (04/18/2012 12:00:00) Digoxin Lvl [0.8-2.0 ng/mL] 0.6 ng/mL *LOW* (04/18/2012 12:00:00) 1Result Comment: The eGFR is calculated using [...] from the National Kidney Disease Education Program ( NKDEP) which additionally recommends that when the eGFR is used in patients with extremes of body mass index for purposes of drug dosing, the eGFR should be mul tiplied by the estimated BMI. 2Interpretive Data: Adult reference range values reflect the clinical guidelines of the [place] [employer]. HEMATOLOGY Most recent to oldest [Reference Range]: 1 WBC [3.7-10.4 K/CMM] 6.0 K/CMM (04/18/2012 12:00:00) RBC [4.70-6.10 M/CMM] 4.50 M/CMM *LOW* (04/18/2012:00:00) Hgb [14.0-18.0 g/dL] 14.3 g/dL (04/18/2012:00:00) Hct [42.0-54.0 %] 42.8 % (04/18/2012:00:00) MCV [80.0-94.0 fL] 95.2 fL *HI* (04/18/2012:00:00) MCH [27.0-31.0 pg] 31.7 pg *HI* (04/18/2012:00:00) MCHC [32.0-36.0 g/dL] 33.3 g/dL (04/18/2012:00:00) RDW [11.5-14.5 %] 14.0 % (04/18/2012:00:00) Platelet [133-450 K/CMM] 136 K/CMM (04/18/2012 12:00:00) MPV [7.4-10.4 fL] 8.0 fL (04/18/2012:00:00) Segs [45.0-75.0 %] 72.5 % (04/18/2012:00:00) Lymphocytes [20.0-40.0 %] 15.8 % *LOW* (04/18/2012:00:00) Monocytes [2.0-12.0 %] 8.0 % (04/18/2012:00:00) Eosinophils [0.0-4.0 %] 3.1 % (04/18/2012:00:00) Basophils [0.0-1.0 %] 0.6 % (04/18/2012 12:00:00) Segs-Bands # [1.5-8.1 K/CMM] 4.3 K/CMM (04/18/2012 12:00:00) Lymphocytes # [1.0-5.5 K/CMM] 0.9 K/CMM *LOW* (04/18/2012 12:00:00) Monocytes # [0.0-0.8 K/CMM] 0.5 K/CMM (04/18/2012 12:00:00) Eosinophils # [0.0-0.5 K/CMM] 0.2 K/CMM (04/18/2012 12:00:00) Basophils # [0.0-0.2 K/CMM] 0.0 K/CMM (04/18/2012 12:00:00) PT [12.0-14.7 seconds] 25.7 seconds *HI* (04/18/2012 12:00:00) INR [0.85-1.17] 2.35 3 *HI* (04/18/2012 12:00:00) 3Interpretive Data: RECOMMENDED RANGES FOR PROTIME INR: 2.0-3.0 for most medical and surgical thromboembolic states. 2.5-3.5 for artificial heart valves and recurrent embolism. INR SHOULD BE USED ONLY FOR PATIENTS ON STABLE ANTICOAGULANT THERAPY.
--- OUTSIDE RECORDS SUMMARY | 2018-01-10 14:27 | XMS REPORT | CCD ---
Author Author Auto Generated Organization [facility] Address Unknown Phone Unavailable Care Team Providers Care Chute Operator Name Role Phone Khurram Gay CP Results HEMATOLOGY Most recent to oldest [Reference Range]: 1 PT [12.0-14.7 seconds] 25.9 seconds *HI* (04/22/2011 10:53:00) INR [0.85-1.17] 2.40 1 *HI* (04/22/2011 10:53:00) 1Interpretive Data: RECOMMENDED RANGES FOR PROTIME INR: 2.0-3.0 for most medical and surgical thromboembolic states. 2.5-3.5 for artificial heart valves and recurrent embolism.INR SHOULD BE USED ONLY FOR PATIENTS ON STABLE ANTICOAGULANT THERAPY.
--- OUTSIDE RECORDS SUMMARY | 2018-01-10 14:27 | XMS REPORT | Summary of Care ---
Author Organization Unknown Address Unknown Phone Unavailable Encounter HQ Garima(EDSON) [id number] Date(s): 07/12/14 - 08/10/14 [facility] [address] [place] [address] [phone] Discharge Disposition: Home Physician Attending: Dread Osorio MD Vital Signs No data available for this section Problem List No data available for this section Allergies, Adverse Reactions, Alerts No data available for this section Medications No data available for this section Results HEMATOLOGY Most recent to 1 oldest [Reference Range]: PT [12.0-14.7 25.6 seconds seconds] *HI* (07/12/14 2:36 PM) INR [0.85-1.17] 2.26 1 *HI* (07/12/14 2:36 PM) 1Interpretive Data: RECOMMENDED RANGES FOR PROTIME [...]
--- OUTSIDE RECORDS SUMMARY | 2018-01-10 14:27 | XMS REPORT | Summary of Care ---
Author Organization Unknown Address Unknown Phone Unavailable Encounter JANIS Painting(EDSON) [id number] Date(s): 09/24/13 - 10/23/13 [facility] [address] [address] [place] [address] Discharge Disposition: Home Physician Attending: Dread Osorio MD Reason for Visit V58.61 Problem List No data available for this section Allergies, Adverse Reactions, Alerts No data available for this section Medications No data available for this section Results HEMATOLOGY Most recent to 1 2 oldest [Reference Range]: PT [12.0-14.7 24.4 seconds 23.9 seconds seconds] *HI* *HI* (10/19/13 1:37 PM) (09/24/13 3:05 PM) INR [0.85-1.17] 2.24 1 2.19 2 *HI* *HI* (10/19/13 1:37 PM) (09/24/13 3:05 PM) 1Interpretive Data: RECOMMENDED RANGES FOR PROTIME [...]
--- OUTSIDE RECORDS SUMMARY | 2018-01-10 14:27 | XMS REPORT | CCD ---
Author Author Auto Generated Organization [facility] Address Unknown Phone Unavailable Care Team Providers Care Neurology Technologist Name Role Phone JoDread Gopi CP Results HEMATOLOGY Most recent to oldest [Reference Range]: 1 PT [12.0-14.7 seconds] 24.6 seconds *HI* (11/04/2011 11:13:00) INR [0.85-1.17] 2.22 1 *HI* (11/04/2011 11:13:00) 1Interpretive Data: RECOMMENDED RANGES FOR PROTIME INR: 2.0-3.0 for most medical and surgical thromboembolic states. 2.5-3.5 for artificial heart valves and recurrent embolism. INR SHOULD BE USED ONLY FOR PATIENTS ON STABLE ANTICOAGULANT THERAPY.
--- OUTSIDE RECORDS SUMMARY | 2018-01-10 14:27 | XMS REPORT | Summary of Care ---
Author Organization Unknown Address Unknown Phone Unavailable Encounter Dates Location Diagnoses Discharge Providers Disposition 04/23/2013 [facility] 05/22/[address] , [facility] Reason for Visit LABS RECURRING Problem List No data available for this section Allergies, Adverse Reactions, Alerts No data available for this section Medications No data available for this section Results HEMATOLOGY Most recent to 1 2 oldest [Reference Range]: PT [12.0-14.7 30.0 seconds 34.2 seconds seconds] *HI* *HI* (05/07/2013 15:11:00 [place]) (04/23/2013 15:12:00 [place]) INR [0.85-1.17] 2.94 1 3.48 2 *HI* *HI* (05/07/2013 15:11:00 [place]) (04/23/2013 15:12:00 [place]) 1Interpretive Data: RECOMMENDED RANGES FOR PROTIME INR: [...]
--- OUTSIDE RECORDS SUMMARY | 2018-01-10 14:27 | XMS REPORT | CCD ---
Author Author Auto Generated Organization [facility] Address Unknown Phone Unavailable Care Team Providers Care Business Continuity Strategy Director Name Role Phone Dread Osorio CP Results HEMATOLOGY Most recent to oldest [Reference Range]: 1 PT [12.0-14.7 seconds] 24.9 seconds *HI* (01/25/2013 16:05:00) INR [0.85-1.17] 2.30 1 *HI* (01/25/2013 16:05:00) 1Interpretive Data: RECOMMENDED RANGES FOR PROTIME INR: 2.0-3.0 for most medical and surgical thromboembolic states. 2.5-3.5 for artificial heart valves and recurrent embolism. INR SHOULD BE USED ONLY FOR PATIENTS ON STABLE ANTICOAGULANT THERAPY.
--- OUTSIDE RECORDS SUMMARY | 2018-01-10 14:27 | XMS REPORT | Summary of Care ---
Author Organization Unknown Address Unknown Phone Unavailable Encounter Dates Location Diagnoses Discharge Providers Disposition 06/25/2013 [facility], [facility] 06/25/2013 [address] [address] Reason for Visit V58.61 Problem List No data available for this section Allergies, Adverse Reactions, Alerts No data available for this section Medications No data available for this section Results HEMATOLOGY Most recent to 1 oldest [Reference Range]: PT [12.0-14.7 31.4 seconds seconds] *HI* (06/25/2013 15:25:00 [facility]/[place]) INR [0.85-1.17] 3.12 1 *HI* (06/25/2013 15:25:00 [place]/[place]) 1Interpretive Data: RECOMMENDED RANGES FOR PROTIME INR: 2.0-3.0 for most medical and surgical thromboembolic states. 2.5-3.5 for artificial heart valves and recurrent embolism. INR SHOULD BE USED ONLY FOR PATIENTS ON STABLE ANTICOAGULANT THERAPY. Medications Administered During Your Visit No data available for this section Immunizations No data available for this section
--- OUTSIDE RECORDS SUMMARY | 2018-01-10 14:27 | XMS REPORT | CCD ---
Author Author Auto Generated Organization [facility] Address Unknown Phone Unavailable Care Team Providers Care Formula Clerk Name Role Phone JoDread Gopi CP Results HEMATOLOGY Most recent to oldest [Reference Range]: 1 PT [12.0-14.7 seconds] 26.6 seconds *HI* (06/09/2011 14:06:00) INR [0.85-1.17] 2.49 1 *HI* (06/09/2011 14:06:00) 1Interpretive Data: RECOMMENDED RANGES FOR PROTIME INR: 2.0-3.0 for most medical and surgical thromboembolic states. 2.5-3.5 for artificial heart valves and recurrent embolism.INR SHOULD BE USED ONLY FOR PATIENTS ON STABLE ANTICOAGULANT THERAPY.
--- OUTSIDE RECORDS SUMMARY | 2018-01-10 14:27 | XMS REPORT | Clinical Summary ---
Author Author [facility] Address Unknown Phone Unavailable Care Team Providers Care Senior Label Specialist Name Role Phone Khurram Gay MD PCP Allergies No Known Allergies Current Medications Prescription Sig. Disp. 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 Transcribe Access Jessica Suazo MD Granulomatous hepatitis Orders (Primary Dx) after 01/08/2017 Social History Tobacco Use Types Packs/Day Years Used Date Never Smoker Alcohol Use Drinks/Week oz/Week Comments No Sex Assigned at Date Recorded Not on file Last Filed Vital Signs Not on file Plan of Treatment Health Maintenance Due Date Last Done Comments SHINGRIX VACCINE (#1) 1978 ZOSTER VACCINE 1988 PNEUMOCOCCAL 1993 POLYSACCHARIDE VACCINE AGE 65 AND OVER PNEUMOCOCCAL-13 1993 INFLUENZA VACCINE 10/26/2017 Implants Implanted Type Area Talent Sourcing Specialist Device Expiration Model / Identifier Date Serial / Lot Pacemaker Advisa Mri Sr - [id number] Cardiac N/A: N/A MEDTRONIC CRM 02/08/2018 [id number] / Implanted: 09/09/2016 (Quantity not Pacemaker [employer] [id number] on file) Generators / [id number] Lead, Pacemaker Bipolar Fix Forming Cardiac N/A: N/A [employer]TRON[employer] CRM 06/10/2018 [id number] / Atrial And Ventricular Steroid Pacing USA[employer] [id number] Eluting 52 Centimeter Capsure Fix Leads or / Novus - [id number] Electrodes [id number] Implanted: 09/09/2016 (Quantity not or on file) Accessorie s Kit Faith 3 26mm Commander Tavr Cardiovasc N/A: N/A SADLER 06/07/2017 [id number] (Tf) - [id number] - [id number] ular LIFESCIENCES / Implanted: Qty: 1 on 09/08/2016 by Implants [id number] / Primo Rouse MD [id number] Hemostat Absrbl 4x4in Surgicel Snow Cardiovasc N/A: N/A ETHICON US-EH 2083 / - [id number] ular / Implanted: 09/09/2016 (Quantity not Implants on file) 7fr X 58cm Isoflex Optim IPM N/A: N/A [facility] 07/26/2019 194/58 / Passive-Fixation Lead, Bipolar, [employer] [id number] Straight, Is-1 - [id number] / Implanted: 09/08/2016 (Quantity not [id number] on file) Rhome Perph Vasclr Ptfe 1.2x10cm Vascular N/A: N/A BARD PERIPHERAL 01/22/2021 [id number] / 1.65mm - [id number] Graft VASCULAR / Implanted: 09/08/2016 (Quantity not [id number] on file) Procedures Procedure Name Priority Date/Time Associated Diagnosis Comments CT ABDOMEN PELVIS WO Routine 07/01/2017 Granulomatous hepatitis Results for this CONTRAST 12:38 PM CDT procedure are in the results section. 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 Sagittal and coronal computerized reformatted images were also obtained. The lack of intravenous contrast reduces the sensitivity of detecting solid organ disease. CT imaging was performed with iterative reconstruction techniques and/or automated exposure control to reduce radiation dose. COMPARISON:None. Findings: The lung bases demonstrate scarring and mild volume loss on the left with bronchiectasis. There is mild pleural thickening at the left base as well. The liver and spleen appear normal in size and homogeneous in texture. A few scattered granulomata within the spleen are identified. Only scattered granulomata with calcification within the liver are identified. The adrenal glands, pancreas appear within normal limits. There are calcified stones within the gallbladder to gallbladder itself is contracted and poorly visualized. The left kidney is atrophic with an apparent partial staghorn calculus involving the renal pelvis and mainly lower pole cyst in the stomach horn measuring approximately 3 cm in maximum dimension although numerous additional calcifications measuring up to approximately 9 mm within the collecting system of the mid and lower pole in particular are noted. The right kidney demonstrates a few tiny calcifications no obstructing stones are noted. The pancreas appears unremarkable. There is a large amount of stool present in the colon. There are bilateral inguinal hernias with only fat in the defect. The prostate appears unremarkable. CT bone Windows: Demonstrate compression of L1 with a burst component which appears old. The degree of compression is greater than 50%. There is an additional old compression of the L3 vertebral body with possibly a burst component also healed this 50% or less grade 2 spondylolisthesis of L5 on S1 which appears chronic IMPRESSION: 1. Chronic bronchiectasis and volume loss at the left lung base with slight pleural thickening in the left posterior costophrenic angle. 2. Large amount of stool in the colon. 3. Calcified stones in the gallbladder fossa. 4. 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 5. 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 Sagittal and coronal computerized reformatted images were also obtained. The lack of intravenous contrast reduces the sensitivity of detecting solid organ disease. CT imaging was performed with iterative reconstruction techniques and/or automated exposure control to reduce radiation dose. COMPARISON: None. Findings: The lung bases demonstrate scarring and mild volume loss on the left with bronchiectasis. There is mild pleural thickening at the left base as well. The liver and spleen appear normal in size and homogeneous in texture. A few scattered granulomata within the spleen are identified. Only scattered granulomata with calcification within the liver are identified. The adrenal glands, pancreas appear within normal limits. There are calcified stones within the gallbladder to gallbladder itself is contracted and poorly visualized. The left kidney is atrophic with an apparent partial staghorn calculus involving the renal pelvis and mainly lower pole cyst in the stomach horn measuring approximately 3 cm in maximum dimension although numerous additional calcifications measuring up to approximately 9 mm within the collecting system of the mid and lower pole in particular are noted. The right kidney demonstrates a few tiny calcifications no obstructing stones are noted. The pancreas appears unremarkable. There is a large amount of stool present in the colon. There are bilateral inguinal hernias with only fat in the defect. The prostate appears unremarkable. CT bone Windows: Demonstrate compression of L1 with a burst component which appears old. The degree of compression is greater than 50%. There is an additional old compression of the L3 vertebral body with possibly a burst component also healed this 50% or less grade 2 spondylolisthesis of L5 on S1 which appears chronic IMPRESSION: 1. Chronic bronchiectasis and volume loss at the left lung base with slight pleural thickening in the left posterior costophrenic angle. 2. Large amount of stool in the colon. 3. Calcified stones in the gallbladder fossa. 4. 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 5. Small bilateral inguinal hernias with fat in the defects and prostatic enlargement [id number] [facility] Organization Address City/State/Zipcode Phone Number [facility] [address] [place] [address] after 01/08/2017 Insurance Payer Benefit Subscriber ID Type Phone Address Plan / Group UHC MEDICARE [employer] xxxxxxxxx HMO MEDICARE [facility]
--- OUTSIDE RECORDS SUMMARY | 2018-01-10 14:27 | XMS REPORT | CCD ---
Author Author Auto Generated Organization [facility] Address Unknown Phone Unavailable Care Team Providers Care Janitor And Cleaner Name Role Phone JoDread Gopi CP Results HEMATOLOGY Most recent to oldest [Reference Range]: 1 PT [12.0-14.7 seconds] 30.5 seconds *HI* (02/24/2012 11:12:00) INR [0.85-1.17] 2.94 1 *HI* (02/24/2012 11:12:00) 1Interpretive Data: RECOMMENDED RANGES FOR PROTIME INR: 2.0-3.0 for most medical and surgical thromboembolic states. 2.5-3.5 for artificial heart valves and recurrent embolism. INR SHOULD BE USED ONLY FOR PATIENTS ON STABLE ANTICOAGULANT THERAPY.
--- OUTSIDE RECORDS SUMMARY | 2018-01-10 14:27 | XMS REPORT | Summary of Care ---
Author Organization Unknown Address Unknown Phone Unavailable Encounter JANIS Painting(EDSON) [id number] Date(s): 08/24/13 - 09/22/13 [facility] [address] Discharge Disposition: Home Physician Attending: Dread Osorio MD Reason for Visit UNK Problem List No data available for this section Allergies, Adverse Reactions, Alerts No data available for this section Medications No data available for this section Results HEMATOLOGY Most recent to 1 oldest [Reference Range]: PT [12.0-14.7 25.7 seconds seconds] *HI* (08/24/13 2:30 PM) INR [0.85-1.17] 2.40 1 *HI* (08/24/13 2:30 PM) 1Interpretive Data: RECOMMENDED RANGES FOR PROTIME INR: 2.0-3.0 for most medical and surgical thromboembolic states. 2.5-3.5 for artificial heart valves and recurrent embolism. INR SHOULD BE USED ONLY FOR PATIENTS ON STABLE ANTICOAGULANT THERAPY. Medications Administered During Your Visit No data available for this section Immunizations No data available for this section
--- OUTSIDE RECORDS SUMMARY | 2018-01-10 14:27 | XMS REPORT | CCD ---
Author Author Auto Generated Organization [facility] Address Unknown Phone Unavailable Care Team Providers Care Guitar Instructor Name Role Phone JoDread Gopi CP Results HEMATOLOGY Most recent to oldest [Reference Range]: 1 PT [12.0-14.7 seconds] 30.5 seconds *HI* (07/03/2012 15:59:00) INR [0.85-1.17] 2.94 1 *HI* (07/03/2012 15:59:00) 1Interpretive Data: RECOMMENDED RANGES FOR PROTIME INR: 2.0-3.0 for most medical and surgical thromboembolic states. 2.5-3.5 for artificial heart valves and recurrent embolism. INR SHOULD BE USED ONLY FOR PATIENTS ON STABLE ANTICOAGULANT THERAPY.
--- OUTSIDE RECORDS SUMMARY | 2018-01-10 14:27 | XMS REPORT | Summary of Care ---
Author Organization Unknown Address Unknown Phone Unavailable Encounter JANIS Painting(EDSON) [id number] Date(s): 09/24/13 - 10/23/13 [facility] [address] [address] Discharge Disposition: Home Physician Attending: Dread [...]
--- OUTSIDE RECORDS SUMMARY | 2018-01-10 14:27 | XMS REPORT | Summary of Care ---
Author Organization Unknown Address Unknown Phone Unavailable Encounter JANIS Painting(EDSON) [id number] Date(s): 03/18/14 - 04/16/14 [facility] [address] Discharge Disposition: Home Physician Attending: Dread Osorio MD Reason for Visit PT INR Problem List No data available for this section Allergies, Adverse Reactions, Alerts No data available for this section Medications No data available for this section Results HEMATOLOGY Most recent to 1 oldest [Reference Range]: PT [12.0-14.7 24.6 seconds seconds] *HI* (03/18/14 12:50 PM) INR [0.85-1.17] 2.15 1 *HI* (03/18/14 12:50 PM) 1Interpretive Data: RECOMMENDED RANGES FOR PROTIME INR: 2.0-3.0 for most medical and surgical thromboembolic states. 2.5-3.5 for artificial heart valves and recurrent embolism. INR SHOULD BE USED ONLY FOR PATIENTS ON STABLE ANTICOAGULANT THERAPY. Medications Administered During Your Visit No data available for this section Immunizations No data available for this section
--- OUTSIDE RECORDS SUMMARY | 2018-01-10 14:27 | XMS REPORT | Summary of Care ---
Author Organization Unknown Address Unknown Phone Unavailable Encounter JANIS Painting(EDSON) [id number] Date(s): 06/25/13 - 07/24/13 [facility] [address] [place], [place] [address] [place] [address] Discharge Disposition: Home Physician Attending: Dread Osorio Reason for Visit V58.61 Problem List No data available for this section Allergies, Adverse Reactions, Alerts No data available for this section Medications No data available for this section Results HEMATOLOGY Most recent to 1 oldest [Reference Range]: PT [12.0-14.7 24.1 seconds 1 seconds] *HI* (07/03/13 1:30 PM) INR [0.85-1.17] 2.21 2, 3 *HI* (07/03/13 1:30 PM) 1Result Comment: Collection date/time has been modified to: 13:30:00. Previous collection date/time: 10:14:00. 2Result Comment: Collection date/time has been modified to: 13:30:00. Previous collection date/time: 10:14:00. 3Interpretive Data: RECOMMENDED RANGES FOR PROTIME INR: 2.0-3.0 for most medical and surgical thromboembolic states. 2.5-3.5 for artificial heart valves and recurrent embolism. INR SHOULD BE USED ONLY FOR PATIENTS ON STABLE ANTICOAGULANT THERAPY. Medications Administered During Your Visit No data available for this section Immunizations No data available for this section
--- OUTSIDE RECORDS SUMMARY | 2018-01-10 14:27 | XMS REPORT | CCD ---
Author Author Auto Generated Organization [facility] Address Unknown Phone Unavailable Care Team Providers Care Surgical Technician Name Role Phone JoDread Gopi CP Results HEMATOLOGY Most recent to oldest [Reference Range]: 1 PT [12.0-14.7 seconds] 27.7 seconds *HI* (01/13/2012 10:25:00) INR [0.85-1.17] 2.59 1 *HI* (01/13/2012 10:25:00) 1Interpretive Data: RECOMMENDED RANGES FOR PROTIME INR: 2.0-3.0 for most medical and surgical thromboembolic states. 2.5-3.5 for artificial heart valves and recurrent embolism. INR SHOULD BE USED ONLY FOR PATIENTS ON STABLE ANTICOAGULANT THERAPY.
--- OUTSIDE RECORDS SUMMARY | 2018-01-10 14:27 | XMS REPORT | CCD ---
Author Author Auto Generated Organization [facility] Address Unknown Phone Unavailable Care Team Providers Care Meter Tester Name Role Phone TedDread su CP Results CHEMISTRY Most recent to oldest [Reference Range]: 1 Digoxin Lvl [0.8-2.0 ng/mL] 0.8 ng/mL (03/15/2011 11:14:00) HEMATOLOGY Most recent to oldest [Reference Range]: 1 PT [12.0-14.7 seconds] 26.7 seconds *HI* (03/15/2011 11:14:00) INR [0.85-1.17] 2.50 1 *HI* (03/15/2011 11:14:00) 1Interpretive Data: RECOMMENDED RANGES FOR PROTIME INR: 2.0-3.0 for most medical and surgical thromboembolic states. 2.5-3.5 for artificial heart valves and recurrent embolism.INR SHOULD BE USED ONLY FOR PATIENTS ON STABLE ANTICOAGULANT THERAPY.
--- OUTSIDE RECORDS SUMMARY | 2018-01-10 14:28 | XMS REPORT | Summary of Care ---
Author Organization Unknown Address Unknown Phone Unavailable Encounter HQ Garima(EDSON) [id number] Date(s): 08/29/14 - 09/27/14 [facility] [address] [place] [address]- Discharge Disposition: Home Physician Attending: Dread Osorio MD Vital Signs No data available for this section Problem List No data available for this section Allergies, Adverse Reactions, Alerts No data available for this section Medications No data available for this section Results HEMATOLOGY Most recent to 1 oldest [Reference Range]: PT [12.0-14.7 29.3 seconds seconds] *HI* (08/29/14 1:56 PM) INR [0.85-1.17] 2.67 1 *HI* (08/29/14 1:56 PM) 1Interpretive Data: RECOMMENDED RANGES FOR PROTIME [...]
--- OUTSIDE RECORDS SUMMARY | 2018-01-10 14:28 | XMS REPORT | Summary of Care ---
Author Author [facility] Organization [facility] Address Unknown Phone Unavailable Encounter HQ Nj_jesus(EDSON) [id number] Date(s): 08/02/16 - 08/02/16 [facility] [address] [place] [address] Discharge Disposition: Home or Self Care Attending Physician: Mayo Teran MD Referring Physician: Mayo Teran MD Vital Signs Most recent to 1 oldest [Reference Range]: Height 170.18 cm (08/02/16 10:30 AM) Weight 76.818 kg (08/02/16 10:30 AM) Body Mass Index 26.52 m2 (08/02/16 10:30 AM) Problem List No data available for this section Allergies, Adverse Reactions, Alerts No data available for this section Medications No data available for this section Results No data available for this section Immunizations No data available for this section Procedures No data available for this section Social History No data available for this section Assessment and Plan No data available for this section
--- OUTSIDE RECORDS SUMMARY | 2018-01-10 14:28 | XMS REPORT | Summary of Care ---
Author Author [facility] Organization [facility] Address Unknown Phone Unavailable Encounter HQ Nj_jesus(EDSON) [id number] Date(s): 10/16/14 - 11/14/14 [facility] [address] [place] [address]- Discharge Disposition: Home Attending Physician: Dread Osorio MD Vital Signs No data available for this section Problem List No data available for this section Allergies, Adverse Reactions, Alerts No data available for this section Medications No data available for this section Results HEMATOLOGY Most recent to 1 oldest [Reference Range]: PT [12.0-14.7 33.6 seconds seconds] *HI* (10/16/14 2:25 PM) INR [0.85-1.17] 3.16 *HI* (10/16/14 2:25 PM) Immunizations No data available for this section Procedures No data available for this section Social History No data available for this section Assessment and Plan No data available for this section
--- OUTSIDE RECORDS SUMMARY | 2018-01-10 14:28 | XMS REPORT | Summary of Care ---
Author Author [facility] Organization [facility] Address Unknown Phone Unavailable Encounter HQ Galinar_jesus(EDSON) [id number] Date(s): 06/10/15 - 07/09/15 [facility] [address] [place] [address]- Final: Unspecified atrial fibrillation Discharge Disposition: Home Attending Physician: Dread Osorio MD Vital Signs No data available for this section Problem List No data available for this section Allergies, Adverse Reactions, Alerts No data available for this section Medications No data available for this section Results HEMATOLOGY Most recent to 1 oldest [Reference Range]: PT [12.0-14.7 25.6 seconds seconds] *HI* (06/10/15 1:22 PM) INR [0.85-1.17] 2.30 *HI* (06/10/15 1:22 PM) Immunizations No data available for this section Procedures No data available for this section Social History No data available for this section Assessment and Plan No data available for this section
--- OUTSIDE RECORDS SUMMARY | 2018-01-10 14:28 | XMS REPORT | Clinical Summary ---
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 [id number] on file) Generators / [id number] Lead, Pacemaker Bipolar Fix Forming Cardiac N/A: N/A MEDTRONIC CRM 06/10/2018 [id number] 52 / Atrial And Ventricular Steroid Pacing USA, INC. [id number] Eluting 52 Centimeter Capsure Fix Leads or / Novus - [id number] Electrodes [id number] Implanted: 09/09/2016 (Quantity not or on file) Accessorie s Kit Faith 3 26mm Commander Tavr Cardiovasc N/A: N/A SADLER 06/07/2017 [id number] (Tf) - [id number] - [id number] ular LIFESCIENCES / Implanted: Qty: 1 on 09/08/2016 by Implants [id number] / Primo Rouse MD [id number] Hemostat Absrbl 4x4in Surgicel Snow Cardiovasc N/A: N/A ETHICON US-EH 2083 / - [id number] ular / Implanted: 09/09/2016 (Quantity not Implants on file) 7fr X 58cm Isoflex Optim IPM N/A: N/A [facility] 07/26/2019 194/58 / Passive-Fixation Lead, Bipolar, [employer] [id number] Straight, Is-1 - [id number] / Implanted: 09/08/2016 (Quantity not [id number] on file) [place] Perph Vasclr Ptfe 1.2x10cm Vascular N/A: N/A BARD PERIPHERAL 01/22/2021 [id number] / 1.65mm - [id number] Graft VASCULAR / Implanted: 09/08/2016 (Quantity not [id number] on file) Procedures Procedure Name Priority Date/Time Associated Diagnosis Comments CT ABDOMEN PELVIS WO Routine 07/01/2017 Granulomatous hepatitis Results for this CONTRAST 12:38 PM CDT procedure are in the results section. after 01/09/2017 Results * CT Abdomen Pelvis Wo Contrast [...] fat in the defects and prostatic enlargement [id number] Procedure Note Hm Interface, Radiology Results Incoming [...] fat in the defects and prostatic enlargement [id number] [facility] Organization Address City/State/Zipcode Phone Number [facility] [address] [place] [address] after 01/09/2017 Insurance Payer Benefit Subscriber ID Type Phone Address Plan / Group UHC MEDICARE UNITEDHC xxxxxxxxx HMO MEDICARE DIRECT [facility]
--- OUTSIDE RECORDS SUMMARY | 2018-01-10 14:28 | XMS REPORT | Summary of Care ---
Author Author [facility] Organization [facility] Address Unknown Phone Unavailable Encounter HQ Galinar_jesus(FIN) [id number] Date(s): 09/18/15 - 10/17/15 [facility] [address] [place] [address]- Discharge Disposition: Home or Self Care Attending Physician: Dread Osorio MD Vital Signs No data available for this section Problem List No data available for this section Allergies, Adverse Reactions, Alerts No data available for this section Medications No data available for this section Results HEMATOLOGY Most recent to 1 oldest [Reference Range]: PT [12.0-14.7 23.2 seconds seconds] *HI* (09/18/15 11:30 AM) INR [0.85-1.17] 2.02 *HI* (09/18/15 11:30 AM) Immunizations No data available for this section Procedures No data available for this section Social History No data available for this section Assessment and Plan No data available for this section
--- OUTSIDE RECORDS SUMMARY | 2018-01-10 14:28 | XMS REPORT | Summary of Care ---
Author Author [facility] Organization [facility] Address Unknown Phone Unavailable Encounter HQ Galinar_jesus(EDSON) [id number] Date(s): 12/19/14 - 12/25/14 [facility] [address] [place] [address]- Discharge Disposition: Home Attending Physician: Dread Osorio MD Vital Signs No data available for this section Problem List No data available for this section Allergies, Adverse Reactions, Alerts No data available for this section Medications No data available for this section Results HEMATOLOGY Most recent to 1 oldest [Reference Range]: PT [12.0-14.7 30.5 seconds seconds] *HI* (12/19/14 1:39 PM) INR [0.85-1.17] 2.89 *HI* (12/19/14 1:39 PM) Immunizations No data available for this section Procedures No data available for this section Social History No data available for this section Assessment and Plan No data available for this section
--- OUTSIDE RECORDS SUMMARY | 2018-01-10 14:28 | XMS REPORT | Summary of Care ---
Author Author [facility] Organization [facility] Address Unknown Phone Unavailable Encounter HQ Nj_jesus(EDSON) [id number] Date(s): 01/20/15 - 02/18/15 [facility] [address] [place] [address]- Discharge Disposition: Home Attending Physician: Dread Osorio MD Vital Signs No data available for this section Problem List No data available for this section Allergies, Adverse Reactions, Alerts No data available for this section Medications No data available for this section Results HEMATOLOGY Most recent to 1 oldest [Reference Range]: PT [12.0-14.7 33.9 seconds seconds] *HI* (01/20/15 1:36 PM) INR [0.85-1.17] 3.31 *HI* (01/20/15 1:36 PM) Immunizations No data available for this section Procedures No data available for this section Social History No data available for this section Assessment and Plan No data available for this section
[2018-01-10 14:29] LABS: EOSINOPHILS % (MANUAL) 6 % (0-7); LYMPHOCYTES % (MANUAL) 10 % (19-48); MONOCYTES % (MANUAL) 5 % (3.4-9.0); NEUTROPHILS % (MANUAL) 79 % (40-74)
--- OUTSIDE RECORDS SUMMARY | 2018-01-10 14:29 | XMS REPORT ---
Author [facility] Address Unknown Phone Unavailable Care Team Providers Care Signals Analyst Name Role Phone Ann-Marie ORR Unavailable Unavailable Problems This patient has no known problems. Allergies, Adverse Reactions, Alerts This patient has no known allergies or adverse reactions. Medications This patient has no known medications. Results Test Description Test Time Test Comments Text Results Atomic Results Result Comments CHEST SINGLE (PORTABLE) 2018-01-09 23:24:00 [place] [address] Patient Name: RACHEL THOMPSON MR #: [id number] : 1930 Age/Sex: 87/M Req #: [id number] Adm Physician: Ordered by: ASH ORR MD Report #: [id number] Location: ER Room/Bed: Procedure: [id number] DX/CHEST SINGLE (PORTABLE) Exam Date: 01/09/18 Exam Time: 2 REPORT STATUS: Signed EXAMINATION: CHEST SINGLE (PORTABLE) INDICATION: Pacemaker, valve replacement, A. fib on Coumadin COMPARISON: None FINDINGS: TUBES and LINES: The pacemaker is intact. LUNGS: Lungs are not well inflated. Left lower lobe airspace opacity in the retrocardiac space with air bronchogram . PLEURA: Trace of left pleural effusion. HEART AND MEDIASTINUM: The cardiomediastinal silhouette is unremarkable. BONES AND SOFT TISSUES: No acute osseous lesion. Soft tissues are unremarkable. UPPER ABDOMEN: No free air under the diaphragm. IMPRESSION: Confluent opacity in the left lower lobe, retrocardiac space may represent atelectasis or pneumonia. Small left pleural effusion. Signed by: Dr. Kristopher Reynoso M.D. on 01/09/2018 11:25 PM Dictated By: KRISTOPHER FLOWER MD 1975 Transcribed By: DI on 01/09/18 3627 COPY TO: ASH ORR MD
[2018-01-10 14:30] LABS: HYPOCHROMASIA MODERATE; PLATELET ESTIMATE SLIGHTLY DECREASED; PLATELET MORPHOLOGY COMMENT NORMAL; RBC MORPHOLOGY COMMENT NORMAL
[2018-01-10] MEDS ORDERED: SODIUM CHLORIDE 0.9% 100 ML 100 ML ONE (15:08)
[2018-01-10] MEDS ORDERED: IOPAMIDOL 370 MG/ML 200 ML INFUS..BTL INJ ONE (15:08)
[2018-01-10] MEDS ORDERED: FUROSEMIDE INJ 10 MG/ML 2 ML VIAL IV PRN (17:00)
[2018-01-10] MEDS ORDERED: SODIUM CHLORIDE 0.9% 250ML 250 ML ONE (18:28)
[2018-01-10] MEDS ORDERED: OCTREOTIDE ACETATE 600 MCG in SODIUM CHLORIDE 0.9% 250ML 300 ML IV SCH (19:10)
[2018-01-10] MEDS ORDERED: BISACODYL 5 MG TAB EC PO ONE (19:15)
[2018-01-10] MEDS ORDERED: CITRATE OF MAGNESIA 300ML BOTTLE PO ONE (19:15)
[2018-01-10] MEDS ORDERED: PEG (High)/E-LYTE SOLN 4,000 ML BTL PO ONE (19:15)
[2018-01-10] MEDS: OCTREOTIDE ACETATE 500 MCG in SODIUM CHLORIDE 0.9% 250ML 250 ML IV SCH (23:00)
[2018-01-10] MEDS ORDERED: ONDANSETRON HCL INJ 2 MG/ML VIAL IV PRN (23:15)
[2018-01-11] VITALS (82 sets, daily range): BP systolic 90–161; BP diastolic 35–112
[2018-01-11 04:40] LABS: BASOPHILS % 0.3 % (0.0-1.0); EOSINOPHILS # (AUTO) 0.4 (0.0-0.4); EOSINOPHILS % 5.8 % (0.0-6.0); HEMATOCRIT 24.5 % (38.2-49.6); LYMPHOCYTES # (AUTO) 0.8 (1.0-3.2); LYMPHOCYTES % 12.9 % (18.0-39.1); MEAN CORPUSCULAR HEMOGLOBIN 26.7 pg (28-32); MEAN CORPUSCULAR HGB CONC 32.7 g/dL (31-35); MEAN CORPUSCULAR VOLUME 81.7 fL (81-99); MONOCYTES # (AUTO) 0.7 (0.2-0.8); MONOCYTES % 10.2 % (4.4-11.3); NEUTROPHILS # (AUTO) 4.6 (2.1-6.9); NEUTROPHILS % 70.5 % (38.7-80.0); PLATELET COUNT 89 x10e3/uL (140-360); RED CELL DISTRIBUTION WIDTH 16.5 % (11.7-14.4)
[2018-01-11 04:52] LABS: INR 1.46; PROTHROMBIN TIME 18.9 seconds (11.9-14.5)
[2018-01-11] MEDS: SODIUM CHLORIDE 0.9% 1000ML 1,000 ML IV SCH ×2 (07:33→16:55)
[2018-01-11] MEDS: OCTREOTIDE ACETATE 500 MCG in SODIUM CHLORIDE 0.9% 250ML 250 ML IV SCH ×3 (07:33→21:23)
[2018-01-11] MEDS: PANTOPRAZOLE 40 MG 10ML VIAL IV SCH ×2 (08:42→21:23)
[2018-01-11] MEDS: NITROGLYCERIN 0.1MG/HR PATCH TOP SCH (09:00)
[2018-01-11] MEDS ORDERED: SODIUM CHLORIDE 0.9% 250ML 250 ML IV ONE ×2 (11:45→20:15)
[2018-01-11 12:15] LABS: BASOPHILS % 0.4 % (0.0-1.0); EOSINOPHILS # (AUTO) 0.4 (0.0-0.4); EOSINOPHILS % 6.7 % (0.0-6.0); HEMOGLOBIN 8.5 g/dL (14.0-18.0); LYMPHOCYTES # (AUTO) 0.6 (1.0-3.2); MEAN CORPUSCULAR HEMOGLOBIN 26.8 pg (28-32); MEAN CORPUSCULAR HGB CONC 32.7 g/dL (31-35); MONOCYTES # (AUTO) 0.7 (0.2-0.8); MONOCYTES % 12.1 % (4.4-11.3); NEUTROPHILS % 69.4 % (38.7-80.0); PLATELET COUNT 87 x10e3/uL (140-360); RED BLOOD COUNT 3.17 x10e6/uL (4.3-5.7); RED CELL DISTRIBUTION WIDTH 16.7 % (11.7-14.4)
--- NOTE | 2018-01-11 12:23 | Cardiology Report ---
DATE OF STUDY: ECHOCARDIOGRAM M-MODE: Dilated left atrium. Left ventricular hypertrophy. Paradoxical septal wall motion. Bioprosthetic aortic valve. Sclerosis of the mitral valve annulus, pacemaker. No pericardial effusion. SECTOR SCAN: Suboptimal study with poor image quality. Dilated left atrium. Left ventricular hypertrophy. Paradoxical septal wall motion. Ejection fraction is approximately 40%. Tissue prosthetic aortic valve. Normal mitral valve. Sclerosis of the mitral valve annulus. Normal tricuspid valve. No pericardial effusion. CARDIAC DOPPLER STUDY WITH COLOR: Trace mitral tricuspid regurgitation. Pulmonary artery systolic pressure estimated at 25 mmHg. Aortic velocity is 2 meters per second. CONCLUSIONS 1. Tissue prosthetic aortic valve with the aortic velocity of 2 meters per second. 2. Paradoxical septal wall motion with presence of the pacemaker. 3. Left ventricular hypertrophy with ejection fraction of approximately 40%. 4. Trace mitral regurgitation with dilated left atrium. 5. Trace tricuspid regurgitation without pulmonary hypertension. Job#: [id number] VAS cc:DR. ASHA ORTIZ
[2018-01-11 17:31] LABS: ANISOCYTOSIS SLIGHT; EOSINOPHILS % (MANUAL) 6 % (0-7); LYMPHOCYTES % (MANUAL) 13 % (19-48); MONOCYTES % (MANUAL) 4 % (3.4-9.0); NEUTROPHILS % (MANUAL) 76 % (40-74); RBC MORPHOLOGY COMMENT ABNORMAL
[2018-01-11 17:32] LABS: HYPOCHROMASIA SLIGHT; OVALOCYTES FEW; PLATELET ESTIMATE MODERATELY DECREASED
[2018-01-11 17:33] LABS: ELLIPTOCYTE, RBC SLIGHT; PLATELET MORPHOLOGY COMMENT NORMAL
[2018-01-11] MEDS ORDERED: PROPOFOL IV EMULSION 10 MG/ML 20 ML VIAL ONE (17:40)
[2018-01-11 19:48] LABS: HEMATOCRIT 24.3 % (38.2-49.6); HEMOGLOBIN 7.7 g/dL (14.0-18.0)
[2018-01-11 20:08] LABS: ANION GAP 13.2 mmol/L (8-16); BLOOD UREA NITROGEN 19 mg/dL (7-26); BUN/CREATININE RATIO 18 (6-25); CALCIUM 7.9 mg/dL (8.4-10.2); CARBON DIOXIDE 22 mmol/L (22-29); CHLORIDE 107 mmol/L (98-107); CREATININE, SERUM 1.04 mg/dL (0.72-1.25); EST GLOMERULAR FILTRATION RATE > 60 ML/MIN (60-); GLUCOSE 198 mg/dL (74-118); POTASSIUM 4.2 mmol/L (3.5-5.1); SODIUM 138 mmol/L (136-145)
[2018-01-12] VITALS (34 sets, daily range): BP systolic 107–168; BP diastolic 63–110
[2018-01-12] MEDS: SODIUM CHLORIDE 0.9% 1000ML 1,000 ML IV SCH ×2 (04:00→15:57)
[2018-01-12 04:35] LABS: BASOPHILS % 0.4 % (0.0-1.0); EOSINOPHILS # (AUTO) 0.3 (0.0-0.4); HEMATOCRIT 27.7 % (38.2-49.6); LYMPHOCYTES # (AUTO) 0.5 (1.0-3.2); LYMPHOCYTES % 6.7 % (18.0-39.1); MEAN CORPUSCULAR HEMOGLOBIN 27.1 pg (28-32); MEAN CORPUSCULAR HGB CONC 32.5 g/dL (31-35); MEAN CORPUSCULAR VOLUME 83.4 fL (81-99); MONOCYTES # (AUTO) 0.7 (0.2-0.8); MONOCYTES % 9.7 % (4.4-11.3); NEUTROPHILS # (AUTO) 5.7 (2.1-6.9); NEUTROPHILS % 78.9 % (38.7-80.0); PLATELET COUNT 85 x10e3/uL (140-360); RED BLOOD COUNT 3.32 x10e6/uL (4.3-5.7); RED CELL DISTRIBUTION WIDTH 16.5 % (11.7-14.4)
[2018-01-12] MEDS: OCTREOTIDE ACETATE 500 MCG in SODIUM CHLORIDE 0.9% 250ML 250 ML IV SCH (09:12)
[2018-01-12] MEDS: PANTOPRAZOLE 40 MG 10ML VIAL IV SCH ×2 (09:41→21:50)
[2018-01-12] MEDS: NITROGLYCERIN 0.1MG/HR PATCH TOP SCH (09:41)
[2018-01-12 10:00] LABS: HEMATOCRIT 27.7 % (38.2-49.6); HEMOGLOBIN 8.9 g/dL (14.0-18.0)
[2018-01-12 19:03] LABS: HEMATOCRIT 28.3 % (38.2-49.6); HEMOGLOBIN 9.1 g/dL (14.0-18.0)
[2018-01-13] VITALS: BP 144/79
[2018-01-13 01:41] VITALS: BP 144/79
[2018-01-13 04:00] VITALS: BP 164/86
[2018-01-13 06:03] LABS: BASOPHILS % 0.2 % (0.0-1.0); EOSINOPHILS # (AUTO) 0.1 (0.0-0.4); EOSINOPHILS % 1.5 % (0.0-6.0); HEMATOCRIT 29.3 % (38.2-49.6); HEMOGLOBIN 9.6 g/dL (14.0-18.0); LYMPHOCYTES # (AUTO) 0.6 (1.0-3.2); LYMPHOCYTES % 7.1 % (18.0-39.1); MEAN CORPUSCULAR HEMOGLOBIN 27.3 pg (28-32); MEAN CORPUSCULAR HGB CONC 32.8 g/dL (31-35); MEAN CORPUSCULAR VOLUME 83.2 fL (81-99); MONOCYTES # (AUTO) 0.8 (0.2-0.8); MONOCYTES % 8.5 % (4.4-11.3); NEUTROPHILS # (AUTO) 7.3 (2.1-6.9); NEUTROPHILS % 82.4 % (38.7-80.0); PLATELET COUNT 107 x10e3/uL (140-360); RED BLOOD COUNT 3.52 x10e6/uL (4.3-5.7)
[2018-01-13 07:03] VITALS: BP 145/73
[2018-01-13] MEDS: NITROGLYCERIN 0.1MG/HR PATCH TOP SCH (08:43)
[2018-01-13] MEDS: PANTOPRAZOLE 40 MG 10ML VIAL IV SCH (08:43)
[2018-01-13 11:30] VITALS: BP 145/73
[2018-01-13 11:41] VITALS: BP 136/77
[2018-01-13 12:11] LABS: BASOPHILS % 0.1 % (0.0-1.0); EOSINOPHILS # (AUTO) 0.1 (0.0-0.4); EOSINOPHILS % 1.7 % (0.0-6.0); HEMATOCRIT 28.7 % (38.2-49.6); HEMOGLOBIN 9.3 g/dL (14.0-18.0); LYMPHOCYTES # (AUTO) 0.7 (1.0-3.2); LYMPHOCYTES % 8.6 % (18.0-39.1); MEAN CORPUSCULAR HGB CONC 32.4 g/dL (31-35); MEAN CORPUSCULAR VOLUME 83.4 fL (81-99); MONOCYTES # (AUTO) 0.9 (0.2-0.8); MONOCYTES % 11.4 % (4.4-11.3); NEUTROPHILS # (AUTO) 5.9 (2.1-6.9); NEUTROPHILS % 77.8 % (38.7-80.0); PLATELET COUNT 116 x10e3/uL (140-360); RED BLOOD COUNT 3.44 x10e6/uL (4.3-5.7); RED CELL DISTRIBUTION WIDTH 16.1 % (11.7-14.4)
--- NOTE | 2018-01-13 15:13 | Discharge Summary ---
CLINICAL HISTORY: This is an 87-year-old white man with complicated medical history, admitted via the emergency room because of lower GI bleeding. His urine also had significant bleeding. Please refer to my previous dictation concerning details of current illness, past medical history, personal and social history, family history, review of systems, physical examination, initial laboratory studies. HOSPITAL COURSE: The patient was seen in consultation by a director of admissions Dr. Rasta Price and by general surgeon Dr. Maximo Kemp. He required 3 units of blood transfusion with hemoglobin at the time of discharge stable at 9.6. His Coumadin was reversed with fresh frozen plasma. Colonoscopy showed an AV malformation with bleeding, which was successfully clipped. It was the recommendation of Gastroenterology, for fear of high chance of recurrent bleeding, to stop the Coumadin for at least 1 week. Since the patient has an echocardiogram showing bioprosthetic aortic valve, we decided to keep in the future his INR in the range of 1.8 to 2.0 and to resume the Coumadin at 3 mg in 1 week. Other medications included aspirin, atorvastatin, cetirizine, isosorbide mononitrate, lisinopril, and timolol eyedrops remained unchanged. He was given activity, diet, medication and followup instructions. Will see Dr. Asha Biggs and me in 1 week and will see his own physician at [facility] in 1 week as needed. DISCHARGE DIAGNOSES: 1. 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 2. Genitourinary bleeding. 3. Bioprosthetic aortic valve replacement. 4. Coronary artery disease, status post coronary artery bypass surgery. 5. History of prostate cancer and genitourinary bleeding. 6. Chronic kidney disease, improved. 7. Transient hypotension, resolved. 8. History of atrial fibrillation. 9. Pacemaker. 10. History of cerebrovascular accident x2. 11. Cardiomyopathy, ejection fraction 40%. 12. Possible mild dementia. RONAN ROJO MD Job#: [id number] EV cc:ASHA ORTIZ MD
== END 2018-01-13 13:32 | disposition home or self-care (01) | DRG 300 ==
LOC: ER 20:35 → ERHOLD 01-10 00:16 → MED/SURG2 01-10 01:08 → ICU 01-10 08:40 → MED/SURG 01-12 17:17
PROVIDERS: ADMIT Internal Medicine Cardiovascular Disease; ATTEND Internal Medicine Cardiovascular Disease
PROC: 30233K1 Transfusion of Nonautologous Frozen Plasma into Peripheral Vein, Percutaneous Approach (ICD-10-PCS; principal; 2018-01-10)
PROC: 30233N1 Transfusion of Nonautologous Red Blood Cells into Peripheral Vein, Percutaneous Approach (ICD-10-PCS; 2018-01-10)
PROC: 0W3P8ZZ Control Bleeding in Gastrointestinal Tract, Via Natural or Artificial Opening Endoscopic (ICD-10-PCS; 2018-01-11)
DX: Q27.33 Arteriovenous malformation of digestive system vessel (principal); D68.32 Hemorrhagic disorder due to extrinsic circulating anticoagulants; D62 Acute posthemorrhagic anemia; I69.351 Hemiplegia and hemiparesis following cerebral infarction affecting right dominant side; N18.4 Chronic kidney disease, stage 4 (severe); I42.9 Cardiomyopathy, unspecified; I48.2 Chronic atrial fibrillation; Z79.01 Long term (current) use of anticoagulants; I25.10 Atherosclerotic heart disease of native coronary artery without angina pectoris; Z95.1 Presence of aortocoronary bypass graft; Z95.2 Presence of prosthetic heart valve; Z85.46 Personal history of malignant neoplasm of prostate; F03.90 Unspecified dementia, unspecified severity, without behavioral disturbance, psychotic disturbance, mood disturbance, and anxiety; Z95.0 Presence of cardiac pacemaker; T45.515A Adverse effect of anticoagulants, initial encounter; K57.30 Diverticulosis of large intestine without perforation or abscess without bleeding; K64.8 Other hemorrhoids; I12.9 Hypertensive chronic kidney disease with stage 1 through stage 4 chronic kidney disease, or unspecified chronic kidney disease; E11.22 Type 2 diabetes mellitus with diabetic chronic kidney disease; E11.65 Type 2 diabetes mellitus with hyperglycemia; N18.9 Chronic kidney disease, unspecified; E03.9 Hypothyroidism, unspecified; I95.89 Other hypotension; Z79.899 Other long term (current) drug therapy
CPT/HCPCS: 36415; 44391; 45378; 71045; 74174; 80048; 80053; 81001; 82550; 82553; 83735; 84484; 85014; 85018; 85025; 85610; 85730; 86850; 86870; 86880; 86900; 86905; 86920; 86922; 93005; 93306; 96366; 99001; 99284; J1940; J2353; J2405; J7030; J7050; P9016; P9017; Q9967

== ENCOUNTER 2018-01-23 12:34 | Observation (INO) | payer MEDICARE ==
[~2018-01-23] VITALS: Ht 170.2 cm; Wt 83.5 kg
[~2018-01-23 12:34] MED LIST: ASPIR 8181 MG PO; BETIMOL5 M1 OS; CETIRIZINE HCL10 MG PO; ISOSORBIDE MONO20 MG PO; LIPITOR20 MG PO; LISINOPRIL5 MG PO; WARFARIN SODIUM2 MG PO
--- OUTSIDE RECORDS SUMMARY | 2018-01-23 12:38 | XMS REPORT | Clinical Summary ---
Author Author [facility] Address Unknown Phone Unavailable Care Team Providers Care Bituminous Paving Machine Operator Name Role Phone Khurram Gay MD PCP [...] MD Granulomatous hepatitis Orders (Primary Dx) after 01/22/2017 Social History Tobacco Use Types Packs/Day Years [...] INFLUENZA VACCINE 10/26/2017 Implants Implanted Type Area Hogshead Hooper Device Expiration Model / Identifier Date Serial / Lot Pacemaker Advisa Mri Sr - [id number] Cardiac N/A: N/A MEDTRONIC CRM 02/08/2018 [id number] / Implanted: 09/09/2016 (Quantity not Pacemaker USA[employer] [id number] on file) Generators / [id number] Lead, Pacemaker Bipolar Fix Forming Cardiac N/A: N/A [employer]TR[employer] CRM 06/10/2018 5076 52 / Atrial And Ventricular Steroid Pacing USA[employer] INC. [id number] Eluting 52 Centimeter Capsure Fix Leads or / Novus - [id number] Electrodes [id number] Implanted: 09/09/2016 (Quantity not or on file) Accessorie s Kit Faith 3 26mm Commander Tavr Cardiovasc N/A: N/A SADLER 06/07/2017 [id number] (Tf) - [id number] - [id number] ular LIFESCIENCES / Implanted: Qty: 1 on 09/08/2016 by Implants [id number] / Primo Rouse MD [id number] Hemostat Absrbl 4x4in Surgicel Snow Cardiovasc N/A: N/A ETHICON US-EH 2083 / - [id number] ular / Implanted: 09/09/2016 (Quantity not Implants on file) 7fr X 58cm Isoflex Optim IPM N/A: N/A [facility]. 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 after 01/22/2017 Results * CT Abdomen Pelvis Wo Contrast [...] fat in the defects and prostatic enlargement [id number] Procedure Note Hm Interface, Radiology Results Incoming [...] fat in the defects and prostatic enlargement [id number] [facility] Organization Address City/State/Zipcode Phone Number [facility] [address] [place] [address] after 01/22/2017 Insurance Payer Benefit Subscriber ID Type Phone Address Plan / Group UHC MEDICARE UNITEDHC xxxxxxxxx HMO MEDICARE DIRECT [facility]
[2018-01-23 13:52] LABS: BASOPHILS % 0.2 % (0.0-1.0); EOSINOPHILS # (AUTO) 0.2 (0.0-0.4); EOSINOPHILS % 4.6 % (0.0-6.0); HEMATOCRIT 24.8 % (38.2-49.6); HEMOGLOBIN 7.6 g/dL (14.0-18.0); LYMPHOCYTES # (AUTO) 0.5 (1.0-3.2); LYMPHOCYTES % 11.8 % (18.0-39.1); MEAN CORPUSCULAR HEMOGLOBIN 28.4 pg (28-32); MEAN CORPUSCULAR HGB CONC 30.6 g/dL (31-35); MEAN CORPUSCULAR VOLUME 92.5 fL (81-99); MONOCYTES # (AUTO) 0.3 (0.2-0.8); MONOCYTES % 7.4 % (4.4-11.3); NEUTROPHILS # (AUTO) 3.5 (2.1-6.9); NEUTROPHILS % 75.1 % (38.7-80.0); PLATELET COUNT 141 x10e3/uL (140-360); RED BLOOD COUNT 2.68 x10e6/uL (4.3-5.7); RED CELL DISTRIBUTION WIDTH 23.1 % (11.7-14.4)
[2018-01-23 14:05] LABS: CLARITY,URINE CLEAR (CLEAR); COLOR,URINE YELLOW (YELLOW); LEUKOCYTE ESTERASE ,URINE TRACE (NEGATIVE); NITRITE,URINE NEGATIVE (NEGATIVE); PROTEIN,URINE DIPSTICK NEGATIVE (NEGATIVE)
[2018-01-23 14:06] LABS: BILIRUBIN,URINE NEGATIVE (NEGATIVE); KETONES,URINE NEGATIVE (NEGATIVE); URINE UROBILINOGEN 1 mg/dL (0.2 - 1)
[2018-01-23 14:08] LABS: RBC,URINE 21-50 /HPF (0-5); WBC,URINE (MAN) 0-5 /HPF (0-5)
[2018-01-23 14:09] LABS: BACTERIA,URINE FEW /HPF; EPITHELIAL CELLS,URINE RARE /LPF
[2018-01-23 14:12] LABS: INR 1.02; PROTHROMBIN TIME 14.3 seconds (11.9-14.5)
[2018-01-23 14:13] LABS: PARTIAL THROMBOPLASTIN TIME 30.6 seconds (23.8-35.5)
[2018-01-23 14:17] LABS: ALBUMIN 3.5 g/dL (3.5-5.0); ALBUMIN/GLOBULIN RATIO 1.1 (0.8-2.0); ANION GAP 11.3 mmol/L (8-16); CALCIUM 8.9 mg/dL (8.4-10.2); CREATININE, SERUM 1.14 mg/dL (0.72-1.25); MAGNESIUM 2.2 MG/DL (1.3-2.1); POTASSIUM 4.3 mmol/L (3.5-5.1)
[2018-01-23] MEDS ORDERED: SODIUM CHLORIDE 0.9% 250ML 250 ML IV ONE (14:45)
[2018-01-23] MEDS ORDERED: WARFARIN SODIUM2 MG PO (17:13)
[2018-01-23] MEDS: PANTOPRAZOLE 40 MG 10ML VIAL IV SCH (17:31)
--- OUTSIDE RECORDS SUMMARY | 2018-01-23 18:04 | XMS REPORT | Clinical Summary ---
Author Author [employer] Address Unknown Phone Unavailable Care Team Providers Care Mechanical Engineering Technician Name Role Phone Khurram Gay MD PCP [...] INFLUENZA VACCINE 10/26/2017 Implants Implanted Type Area Physical Fitness Trainer Device Expiration Model / Identifier Date Serial / Lot Pacemaker Advisa Mri Sr - [id number] Cardiac N/A: N/A [employer] CRM 02/08/2018 [id number] / Implanted: 09/09/2016 (Quantity not Pacemaker [employer] [id number] on file) Generators / [id number] Lead, Pacemaker Bipolar Fix Forming Cardiac N/A: N/A [employer] CRM 06/10/2018 [id number] / Atrial And Ventricular Steroid Pacing [employer] [id number] Eluting 52 Centimeter Capsure Fix Leads or / Novus - [id number] Electrodes [id number] Implanted: 09/09/2016 (Quantity not or on file) Accessorie s Kit Faith 3 26mm Commander Tavr Cardiovasc N/A: N/A SADLER 06/07/2017 [id number] (Tf) - [id number] - [id number] ular LIFESCIENCES / Implanted: Qty: 1 on 09/08/2016 by Implants [id number] / Primo Rouse MD [id number] Hemostat Absrbl 4x4in Surgicel Snow Cardiovasc N/A: N/A ETHICON US-EH 2083 / - [id number] ular / Implanted: 09/09/2016 (Quantity not Implants on file) 7fr X 58cm Isoflex Optim IPM N/A: N/A [facility] 07/26/2019 1948/58 / Passive-Fixation Lead, Bipolar, [employer] [id number] Straight, Is-1 - [id number] / Implanted: 09/08/2016 (Quantity not [id number] on file) [place] Perph Vasclr Ptfe 1.2x10cm Vascular N/A: N/A BARD PERIPHERAL 01/22/2021 [id number] / 1.65mm - [id number] Graft VASCULAR / Implanted: 09/08/2016 (Quantity not [id number] on file) Procedures Procedure Name Priority Date/Time [...] fat in the defects and prostatic enlargement [id number] Procedure Note Hm Interface, Radiology Results Incoming [...] fat in the defects and prostatic enlargement [id number] [facility] Organization Address City/State/Zipcode Phone Number [facility] [address] [place] [address] after 01/22/2017 Insurance Payer Benefit Subscriber ID Type Phone Address Plan / Group UHC MEDICARE [employer] xxxxxxxxx HMO MEDICARE DIRECT [facility]
[2018-01-23 20:33] VITALS: BP 135/78
[2018-01-23 20:34] VITALS: BP 135/78
[2018-01-23 20:42] VITALS: BP 135/78
[2018-01-23] MEDS ORDERED: SODIUM CHLORIDE 0.9% 250ML 750 ML ONE (22:56)
[2018-01-23 23:51] LABS: BASOPHILS % 0.3 % (0.0-1.0); EOSINOPHILS # (AUTO) 0.2 (0.0-0.4); EOSINOPHILS % 4.8 % (0.0-6.0); HEMATOCRIT 22.6 % (38.2-49.6); LYMPHOCYTES # (AUTO) 0.8 (1.0-3.2); LYMPHOCYTES % 20.9 % (18.0-39.1); MEAN CORPUSCULAR HEMOGLOBIN 28.7 pg (28-32); MEAN CORPUSCULAR VOLUME 92.6 fL (81-99); MONOCYTES # (AUTO) 0.4 (0.2-0.8); MONOCYTES % 10.8 % (4.4-11.3); NEUTROPHILS # (AUTO) 2.5 (2.1-6.9); NEUTROPHILS % 62.4 % (38.7-80.0); PLATELET COUNT 130 x10e3/uL (140-360); RED BLOOD COUNT 2.44 x10e6/uL (4.3-5.7); RED CELL DISTRIBUTION WIDTH 22.4 % (11.7-14.4)
[2018-01-24] VITALS (9 sets, daily range): BP systolic 106–149; BP diastolic 59–78
--- NOTE | 2018-01-24 07:59 | Consultation ---
DATE OF CONSULTATION: January 24, 2018 HISTORY: This is an 87-year-old gentleman, who is very well known to me, history of bioprosthetic aortic valve replacement, history of coronary artery disease, history of atrial fibrillation, previous pacemaker placement, cardiomyopathy, apparently had GI bleed, with AV malformations about 2 weeks or so ago. Patient, apparently, came in this time again with some anemia and black stool. He was found to have hemoglobin of 7.6 and it dropped to 7.0 yesterday. His PT and INR are okay. He denies any abdominal pain, nausea or vomiting. His other medical problem is significant for history of atrial fibrillation, history of cardiomyopathy, history of aortic valve replacement. HOME MEDICATIONS: Lipitor, isosorbide, lisinopril, eyedrop, and warfarin. SOCIAL HISTORY: No alcohol use. FAMILY HISTORY: Noncontributory. REVIEW OF SYSTEMS: Denies any chest pain at this point. Denies any shortness of breath. Denies any dysphagia, odynophagia. Denies any dysuria, hematuria or any kind of syncopal episode. PHYSICAL EXAMINATION GENERAL: Patient is awake, alert, appears to be stable, not in acute distress at this point. VITAL SIGNS: Afebrile currently with stable vital signs. HEAD, EYES, EARS, NOSE AND THROAT: Normocephalic. Sclerae are anicteric. NECK: Supple. HEART: S1, S2. Regular. ABDOMEN: Soft. There is no distention at this point. It is nontender. EXTREMITIES: No cyanosis or clubbing. LAB VALUES: As of last night, hemoglobin of 7, and chemistry was okay. IMPRESSIONS 1. Gastrointestinal bleed. Patient has some apparently black stool. 2. History of cardiomyopathy. 3. Coronary artery disease, history of previous pacemaker. RECOMMENDATION: Continue on proton pump inhibitor at this point. Will continue with the EGD for further evaluation today and follow labs and clinically. Job#: [id number] CQ cc:MD DR DUONG VANESSA
[2018-01-24] MEDS: PANTOPRAZOLE 40 MG 10ML VIAL IV SCH (09:26)
[2018-01-24 10:14] LABS: BASOPHILS % 0.4 % (0.0-1.0); EOSINOPHILS # (AUTO) 0.2 (0.0-0.4); EOSINOPHILS % 4.6 % (0.0-6.0); LYMPHOCYTES # (AUTO) 0.6 (1.0-3.2); LYMPHOCYTES % 11.7 % (18.0-39.1); MEAN CORPUSCULAR HEMOGLOBIN 29.2 pg (28-32); MEAN CORPUSCULAR HGB CONC 32.3 g/dL (31-35); MEAN CORPUSCULAR VOLUME 90.6 fL (81-99); MONOCYTES # (AUTO) 0.5 (0.2-0.8); MONOCYTES % 9.8 % (4.4-11.3); NEUTROPHILS # (AUTO) 3.8 (2.1-6.9); NEUTROPHILS % 72.7 % (38.7-80.0); PLATELET COUNT 117 x10e3/uL (140-360); RED BLOOD COUNT 3.42 x10e6/uL (4.3-5.7); RED CELL DISTRIBUTION WIDTH 19.4 % (11.7-14.4)
[2018-01-24 10:31] LABS: ALANINE AMINOTRANSFERASE 12 IU/L (0-55); ALBUMIN 3.3 g/dL (3.5-5.0); ALBUMIN/GLOBULIN RATIO 1.1 (0.8-2.0); ALKALINE PHOSPHATASE 73 IU/L (40-150); ANION GAP 12.1 mmol/L (8-16); BLOOD UREA NITROGEN 17 mg/dL (7-26); BUN/CREATININE RATIO 18 (6-25); CALCIUM 8.6 mg/dL (8.4-10.2); CARBON DIOXIDE 23 mmol/L (22-29); CHLORIDE 106 mmol/L (98-107); CREATININE, SERUM 0.97 mg/dL (0.72-1.25); EST GLOMERULAR FILTRATION RATE > 60 ML/MIN (60-); GLUCOSE 85 mg/dL (74-118); POTASSIUM 4.1 mmol/L (3.5-5.1); SODIUM 137 mmol/L (136-145)
[2018-01-24 10:58] LABS: BILIRUBIN,DIRECT 0.9 mg/dL (0.0-0.5)
--- NOTE | 2018-01-24 13:57 | History and Physical ---
CLINICAL HISTORY: This is an 87-year-old white man with complicated medical history, admitted via the emergency room because of recurrent bleeding requiring blood transfusion and because of jaundice with bilirubin up to 4.1. This patient is status post bioprosthetic aortic valve replacement, coronary artery bypass surgery, and has history of atrial fibrillation. He was previously placed on Coumadin, but developed lower GI bleeding with bright red blood due to AV malformation on 01/10/2018. He underwent colonoscopy and clipping of the bleeding site by Dr. Gali Price (gastroenterology). Subsequently and after blood transfusion, he was able to be discharged, to be followed on outpatient basis. He came to my office on Tuesday, appearing to be pale and jaundiced. Bilirubin was 4.1. Hemoglobin was 7.0. Patient was advised to return to the emergency room for further evaluation and treatment. He presented to the emergency room. Hemoglobin was 7.0, bilirubin was down to 3.0. He is being admitted for further blood transfusion. PAST MEDICAL HISTORY: Remarkable for history of bleeding as well as history of prostate cancer, gallstones, CVA x2, acute kidney injury, transient hypotension due to bleeding, pacemaker, cardiomyopathy, ejection fraction of 40%, and mild dementia. PERSONAL AND SOCIAL HISTORY: Denies smoking or drinking. ALLERGIES: NONE KNOWN. FAMILY HISTORY: Noncontributory. PAST SURGICAL HISTORY: Included bypass, pacemaker, bioprosthetic aortic valve. REVIEW OF SYSTEMS: Noncontributory. PHYSICAL EXAMINATION GENERAL: He is alert, not very talkative, but coherent when pressed to talk. CARDIAC: Jugular veins were not distended. S1 and S2 were regular. A 2/6 systolic murmur. LUNGS: Clear. ABDOMEN: Soft. Bowel sounds are present. EXTREMITIES: Show no cyanosis, clubbing, edema. He appears somewhat jaundiced. LABORATORY STUDIES: As mentioned, the BUN is 23, creatinine 1.1. Platelet count is 130,000, hemoglobin 7, and white count 3900. IMPRESSION 1. Since the patient has melena and previously had hematochezia with bright red blood per rectum, it is suspected that he may have upper gastrointestinal bleeding at this time. His lower gastrointestinal arteriovenous malformation bleeding was previously clipped. He has not returned back to Coumadin despite our plan to do so at a lower dose. 2. Severe anemia, hemoglobin 7.0, requiring repeat blood transfusion. INR is satisfactory. 3. Jaundice, bilirubin 4.1. At the time of last discharge, his bilirubin was 0.9. 4. Rule out hemolysis. 5. Gallstones, rule out gallbladder biliary jaundice. 6. Status post bioprosthetic aortic valve replacement. 7. Status post coronary artery bypass surgery. 8. Status post permanent pacemaker. 9. History of hypotension and acute kidney injury due to previous hypotension from lower gastrointestinal bleed. 10. Cardiomyopathy, last ejection fraction 40% 11. Two previous cerebrovascular accidents. 12. Mild dementia. 13. Chronic atrial fibrillation. 14. Hypertension. 15. Hyperlipidemia. RECOMMENDATIONS: Blood transfusion. GI consultation again. Check for hemolysis. Hold Coumadin for the time being. Job#: [id number] BRENDAN cc:DR. GALI PRICE
--- NOTE | 2018-01-24 16:31 | Diagnostic Imaging Report ---
TECHNIQUE: Ultrasound evaluation of the abdomen. Color doppler was utilized to supplement the evaluation. Per the technologist performing the exam, the exam is partially limited by bowel gas. HISTORY: Jaundice COMPARISON: Images from CT of the abdomen January 10, 2018. DISCUSSION: LIVER: Scattered punctate calcifications. The liver measures 14 cm in the right midclavicular line. BILIARY: The calcified gallstones were much better visualized on the comparison CT. The sonographic Sharpe's sign is reported as negative. The common bile duct measures 0.4 cm. PANCREAS: Incompletely visualized due to the overlying bowel gas. SPLEEN: No splenomegaly. Multiple punctate calcifications. PERITONEUM: No free fluid. KIDNEYS: Multiple small cysts, better seen on the comparison CT. Right: Measures 10 cm in length. No hydronephrosis or solid mass lesion identified. Left: Measures 9 cm in length. No hydronephrosis or solid mass lesion identified. A 1.1 x 0.5 x 0.8 cm echogenic and shadowing focus at the interpolar region. VASCULATURE: Aorta: Limited evaluation secondary to the overlying bowel gas. Interior vena cava: Limited evaluation secondary to the overlying bowel gas. Portal Vein: Nondilated with hepatopedal flow. IMPRESSION: 1. A 1.1 cm nonobstructing left renal stone. 2. Cholelithiasis, better seen on the recent comparison CT. Signed by: Dr. Colten Pa D.O., M.M.M. on 01/24/2018 4:27 PM
[2018-01-24] MEDS ORDERED: PROPOFOL IV EMULSION 10 MG/ML 50 ML VIAL ONE (16:58)
[2018-01-24 18:19] LABS: BASOPHILS % 0.6 % (0.0-1.0); EOSINOPHILS # (AUTO) 0.1 (0.0-0.4); EOSINOPHILS % 1.7 % (0.0-6.0); HEMATOCRIT 36.1 % (38.2-49.6); HEMOGLOBIN 11.4 g/dL (14.0-18.0); LYMPHOCYTES # (AUTO) 0.6 (1.0-3.2); LYMPHOCYTES % 9.8 % (18.0-39.1); MEAN CORPUSCULAR HEMOGLOBIN 28.8 pg (28-32); MEAN CORPUSCULAR HGB CONC 31.6 g/dL (31-35); MEAN CORPUSCULAR VOLUME 91.2 fL (81-99); MONOCYTES # (AUTO) 0.3 (0.2-0.8); NEUTROPHILS # (AUTO) 5.4 (2.1-6.9); NEUTROPHILS % 82.3 % (38.7-80.0); PLATELET COUNT 129 x10e3/uL (140-360); RED BLOOD COUNT 3.96 x10e6/uL (4.3-5.7); RED CELL DISTRIBUTION WIDTH 19.3 % (11.7-14.4)
[2018-01-24 19:00] LABS: ALBUMIN 3.7 g/dL (3.5-5.0); BILIRUBIN,DIRECT 0.8 mg/dL (0.0-0.5)
[2018-01-24] MEDS: ATORVASTATIN 20 MG TAB PO SCH (21:18)
[2018-01-25] VITALS (7 sets, daily range): BP systolic 98–130; BP diastolic 58–77
[2018-01-25 05:14] LABS: BASOPHILS % 0.4 % (0.0-1.0); EOSINOPHILS # (AUTO) 0.2 (0.0-0.4); EOSINOPHILS % 4.1 % (0.0-6.0); HEMATOCRIT 32.1 % (38.2-49.6); HEMOGLOBIN 10.5 g/dL (14.0-18.0); LYMPHOCYTES # (AUTO) 0.7 (1.0-3.2); LYMPHOCYTES % 13.1 % (18.0-39.1); MEAN CORPUSCULAR HEMOGLOBIN 28.9 pg (28-32); MEAN CORPUSCULAR HGB CONC 32.7 g/dL (31-35); MEAN CORPUSCULAR VOLUME 88.4 fL (81-99); MONOCYTES # (AUTO) 0.6 (0.2-0.8); MONOCYTES % 10.1 % (4.4-11.3); NEUTROPHILS % 71.8 % (38.7-80.0); PLATELET COUNT 128 x10e3/uL (140-360); RED BLOOD COUNT 3.63 x10e6/uL (4.3-5.7); RED CELL DISTRIBUTION WIDTH 18.9 % (11.7-14.4)
[2018-01-25] MEDS: PANTOPRAZOLE 40 MG 10ML VIAL IV SCH (08:55)
[2018-01-25] MEDS: ISOSORBIDE MONONITRATE 20 MG TAB PO SCH (08:55)
[2018-01-25] MEDS ORDERED: ATORVASTATIN 20 MG TAB PO SCH (09:00)
[2018-01-25 12:31] LABS: BASOPHILS % 0.5 % (0.0-1.0); EOSINOPHILS # (AUTO) 0.2 (0.0-0.4); EOSINOPHILS % 2.4 % (0.0-6.0); HEMATOCRIT 31.3 % (38.2-49.6); HEMOGLOBIN 10.1 g/dL (14.0-18.0); LYMPHOCYTES # (AUTO) 0.7 (1.0-3.2); LYMPHOCYTES % 10.9 % (18.0-39.1); MEAN CORPUSCULAR HEMOGLOBIN 29.2 pg (28-32); MEAN CORPUSCULAR HGB CONC 32.3 g/dL (31-35); MEAN CORPUSCULAR VOLUME 90.5 fL (81-99); MONOCYTES # (AUTO) 0.6 (0.2-0.8); MONOCYTES % 9.6 % (4.4-11.3); NEUTROPHILS # (AUTO) 4.8 (2.1-6.9); NEUTROPHILS % 76.1 % (38.7-80.0); PLATELET COUNT 130 x10e3/uL (140-360); RED BLOOD COUNT 3.46 x10e6/uL (4.3-5.7)
[2018-01-25 18:20] LABS: BASOPHILS % 0.4 % (0.0-1.0); EOSINOPHILS # (AUTO) 0.2 (0.0-0.4); HEMATOCRIT 34.2 % (38.2-49.6); HEMOGLOBIN 10.8 g/dL (14.0-18.0); LYMPHOCYTES # (AUTO) 0.7 (1.0-3.2); LYMPHOCYTES % 13.1 % (18.0-39.1); MEAN CORPUSCULAR HGB CONC 31.6 g/dL (31-35); MEAN CORPUSCULAR VOLUME 91.7 fL (81-99); MONOCYTES # (AUTO) 0.6 (0.2-0.8); MONOCYTES % 11.5 % (4.4-11.3); NEUTROPHILS # (AUTO) 3.9 (2.1-6.9); NEUTROPHILS % 70.5 % (38.7-80.0); PLATELET COUNT 139 x10e3/uL (140-360); RED BLOOD COUNT 3.73 x10e6/uL (4.3-5.7); RED CELL DISTRIBUTION WIDTH 19.3 % (11.7-14.4)
[2018-01-25] MEDS: ATORVASTATIN 20 MG TAB PO SCH (20:20)
[2018-01-26 00:22] VITALS: BP 123/62
[2018-01-26 04:00] VITALS: BP 121/75
[2018-01-26 05:23] LABS: BASOPHILS % 0.5 % (0.0-1.0); EOSINOPHILS # (AUTO) 0.3 (0.0-0.4); EOSINOPHILS % 4.8 % (0.0-6.0); HEMOGLOBIN 10.6 g/dL (14.0-18.0); LYMPHOCYTES # (AUTO) 0.9 (1.0-3.2); LYMPHOCYTES % 15.5 % (18.0-39.1); MEAN CORPUSCULAR HEMOGLOBIN 28.8 pg (28-32); MEAN CORPUSCULAR HGB CONC 32.1 g/dL (31-35); MEAN CORPUSCULAR VOLUME 89.7 fL (81-99); MONOCYTES # (AUTO) 0.7 (0.2-0.8); NEUTROPHILS # (AUTO) 3.8 (2.1-6.9); NEUTROPHILS % 66.7 % (38.7-80.0); PLATELET COUNT 143 x10e3/uL (140-360); RED BLOOD COUNT 3.68 x10e6/uL (4.3-5.7); RED CELL DISTRIBUTION WIDTH 18.9 % (11.7-14.4)
[2018-01-26 07:33] VITALS: BP 111/64
[2018-01-26] MEDS: ISOSORBIDE MONONITRATE 20 MG TAB PO SCH (09:19)
[2018-01-26] MEDS: PANTOPRAZOLE 40 MG 10ML VIAL IV SCH (09:19)
[2018-01-26 11:15] VITALS: BP 111/64
[2018-01-26 11:46] VITALS: BP 136/82
--- NOTE | 2018-01-26 15:18 | Discharge Summary ---
CLINICAL HISTORY: This is an 87-year-old white man with complicated medical history, a patient of Dr. Asha Ortiz's, admitted via the emergency room because of recurrent progressive anemia with melena as well as because of jaundice with bilirubin of 4.1. Please refer to my previous dictation concerning details of current illness, past medical history, personal and social history, family history, review of systems, physical examination and initial laboratory studies. HOSPITAL COURSE: The patient was found to have developed upper GI bleeding because of the fact that he has melena this time instead of bright red blood per rectum as per his last hospitalization approximately a week and a half ago. He has not resumed his Coumadin, which in retrospect appears to have been the correct decision. His hemoglobin had dropped down to 7.0. We decided to transfuse him with 3 units. This time his hemoglobin is stable at 10.6. His bilirubin came down initially to 3.0 but after transfusion went up to 4.3. There was concern about hemolysis. However, haptoglobin was normal. Dr. Price, gastroenterology, felt the patient has Gilbert syndrome, and this is consistent with his previous history of intermittently elevated bilirubin. EGD had failed to show any evidence of bleeding. PillCam was considered, but there was some reluctance because he has a pacemaker. However, the pacemaker appears to be an MRI-safe unit from [employer]. The pacemaker was evaluated and had no new recurrence of episodes. The patient appears to be in a persistent atrial fibrillation with pacemaker rhythm. With the patient basically stabilized, the family suddenly wanted to transfer him to . We felt that after some waiting for a room and approval from the insurance company, the patient is stable to be discharged and have no further issues on an outpatient basis. He is discharged to follow up with Dr. Asha Ortiz and his own mergers and acquisitions consultant at the [facility], Dr. Osorio, as well as gastroenterology of his choice including possibility of following with Dr. Rasta Price. DISCHARGE DIAGNOSES: 1. Melena with a negative esophagogastroduodenoscopy and possibly a patient for outpatient PillCam study with hemoglobin stable at 10.6 after 2 units transfusion from 7.0. 2. Jaundice with bilirubin around 4.1. Improved spontaneously but went up to 4.3 with blood transfusion. 3. No evidence of hemolytic anemia with haptoglobin being normal. Plasma hemoglobin still pending. 4. Gallstones. 5. History of genitourinary bleeding. 6. Status post bioprosthetic aortic valve. 7. Chronic atrial fibrillation with a pacing rhythm. 8. Status post permanent pacemaker. 9. History of coronary artery bypass surgery. 10. History of hypotension and acute kidney injury. Currently the creatinine is 0.97 with GFR greater than 60. 11. History of cardiomyopathy with ejection fraction 40%. 12. History of two previous cerebrovascular accidents. 13. Mild dementia. 14. History of hypertension. 15. History of hyperlipidemia. RONAN ROJO MD Job#: [id number] EV cc:ASHA ORTIZ MD cc:RASTA PRICE MD
== END 2018-01-26 12:10 | disposition home or self-care (01) ==
LOC: ER 12:34 → ERHOLD 16:33 → IMCU 19:56
PROVIDERS: ADMIT Internal Medicine Cardiovascular Disease; ATTEND Internal Medicine Cardiovascular Disease
DX: K92.1 Melena (principal); D64.9 Anemia, unspecified; I69.351 Hemiplegia and hemiparesis following cerebral infarction affecting right dominant side; Z95.1 Presence of aortocoronary bypass graft; Z95.2 Presence of prosthetic heart valve; Z85.46 Personal history of malignant neoplasm of prostate; R17 Unspecified jaundice; K80.80 Other cholelithiasis without obstruction; I42.9 Cardiomyopathy, unspecified; F03.90 Unspecified dementia, unspecified severity, without behavioral disturbance, psychotic disturbance, mood disturbance, and anxiety; I48.2 Chronic atrial fibrillation; Z79.01 Long term (current) use of anticoagulants; E78.5 Hyperlipidemia, unspecified; Z95.0 Presence of cardiac pacemaker; I25.10 Atherosclerotic heart disease of native coronary artery without angina pectoris; K29.70 Gastritis, unspecified, without bleeding; K44.9 Diaphragmatic hernia without obstruction or gangrene
CPT/HCPCS: 36415 ×4; 36430; 43239; 76700; 80053 ×2; 80076; 81001; 82150; 82248; 83010; 83051; 83690; 83735; 84155; 85025 ×4; 85045; 85610; 85730; 86850; 86870; 86880 ×3; 86886 ×2; 86900; 86905; 86920; 86922; 88305; 88312; 97116; 97161; 99001; 99284; G0378 ×4; G8978; G8979; G8980; J7050; P9016 ×2